=== PATIENT | female | born 1935 | race Caucasian/White ===

== ENCOUNTER 2020-06-13 14:40 | Outpatient (NON) | payer MEDICARE, SELFPAY ==
[2020-06-13 15:22] LABS: Basophils Absolute Auto 0.04 K/mm3 (0.00-0.10); Basophils Percent Auto 0.4 % (0.0-1.0); Eosinophils Absolute Auto 0.16 K/mm3 (0.02-0.50); Eosinophils Percent Auto 1.4 % (1.0-6.0); Hematocrit 42.2 % (35.0-42.0); Hemoglobin 13.5 g/dL (11.7-13.8); Immature Granulocyte Absolute 0.05 K/mm3 (0.00-0.00); Immature Granulocyte Percent A 0.4 % (0.0-0.0); Lymphocytes Absolute Auto 2.43 K/mm3 (1.10-4.50); Lymphocytes Percent Auto 21.4 % (18.0-42.0); Mean Corpuscular Hemoglobin 27.8 pg (27.0-31.0); Mean Platelet Volume 10.7 fl (9.2-11.8); Monocytes Absolute Auto 0.81 K/mm3 (0.10-0.90); Monocytes Percent Auto 7.1 % (2.0-11.0); Neutrophils Absolute Auto 7.9 K/mm3 (1.7-7.2); Neutrophils Percent Auto 69.3 % (50.0-70.0); Platelet Count Result 349 K/mm3 (150-420); Red Blood Count 4.85 M/mm3 (4.20-5.40); Red Cell Distribution Width 13.7 % (11.6-14.4); White Blood Count 11.4 K/mm3 (4.8-10.8)
[2020-06-13 15:28] LABS: Alanine Aminotransferase 15 U/L (14-59); Albumin Level 3.4 g/dL (3.4-5.0); Alkaline Phosphatase 112 U/L (46-116); Anion Gap 11 mmol/L (8-16); Aspartate Amino Transferase 24 U/L (15-37); Bilirubin,Total 0.3 mg/dL (0.00-1.00); Blood Urea Nitrogen 17 mg/dL (7-18); Calcium 8.7 mg/dL (8.5-10.1); Carbon Dioxide 26 mmol/L (21-32); Chloride 105 mmol/L (98-108); Cholesterol 118 mg/dL (0-200); Estimated Glomerular Filt Rate 46; Glucose 94 mg/dL (70-99); HDL Direct 37 mg/dL (40-60); LDL Cholesterol Calculated 38 mg/dL (<130); Osmolality Calculated 295 mOsm/kg (285-295); Potassium 4.7 mmol/L (3.5-5.1); Sodium 142 mmol/L (136-145); Total Protein 7.5 g/dL (6.4-8.2); Triglycerides 217 mg/dL (0-150)
== END 2020-06-13 14:41 ==
LOC: CHSLAB 14:41
PROVIDERS: Visit Provider Nurse Practitioner Family
DX: I51.9 Heart disease, unspecified (principal); I12.9 Hypertensive chronic kidney disease with stage 1 through stage 4 chronic kidney disease, or unspecified chronic kidney disease; N18.31 Chronic kidney disease, stage 3a
CPT/HCPCS: 36415; 80053; 80061; 85025

== ENCOUNTER 2020-08-13 10:50 | Outpatient (CLI) | payer MEDICARE, SELFPAY | END 2020-08-13 10:51 | disposition home or self-care (01) | LOC: CHSAUDIO 10:53 | PROVIDERS: PCP Nurse Practitioner Family; Visit Provider Nurse Practitioner Family | DX: H91.90 Unspecified hearing loss, unspecified ear (principal) | CPT/HCPCS: 92557; 92567 ==

== ENCOUNTER 2020-11-04 16:59 | Outpatient (CLI) | payer MEDICARE, SELFPAY | END 2020-11-04 17:00 | disposition home or self-care (01) | LOC: CHSOUTPT 17:06 | PROVIDERS: PCP Nurse Practitioner Family; Visit Provider Specialist | DX: C44.311 Basal cell carcinoma of skin of nose (principal) | CPT/HCPCS: 88305 ==

== ENCOUNTER 2020-11-19 10:57 | Outpatient (CLI) | payer MEDICARE, SELFPAY ==
[2020-11-19 11:15] LABS: Basophils Absolute Auto 0.04 K/mm3 (0.00-0.10); Basophils Percent Auto 0.5 % (0.0-1.0); Eosinophils Absolute Auto 0.18 K/mm3 (0.02-0.50); Eosinophils Percent Auto 2.1 % (1.0-6.0); Hematocrit 44.6 % (35.0-42.0); Hemoglobin 14.5 g/dL (11.7-13.8); Immature Granulocyte Absolute 0.02 K/mm3 (0.00-0.00); Immature Granulocyte Percent A 0.2 % (0.0-0.0); Lymphocytes Absolute Auto 2.15 K/mm3 (1.10-4.50); Lymphocytes Percent Auto 25.7 % (18.0-42.0); Mean Corpuscular HGB Conc 32.5 g/dL (32.0-36.0); Mean Corpuscular Hemoglobin 28.7 pg (27.0-31.0); Mean Corpuscular Volume 88.1 fL (78.0-102.0); Monocytes Absolute Auto 0.53 K/mm3 (0.10-0.90); Monocytes Percent Auto 6.3 % (2.0-11.0); Neutrophils Absolute Auto 5.5 K/mm3 (1.7-7.2); Neutrophils Percent Auto 65.2 % (50.0-70.0); Platelet Count Result 276 K/mm3 (150-420); Red Blood Count 5.06 M/mm3 (4.20-5.40); Red Cell Distribution Width 13.2 % (11.6-14.4); White Blood Count 8.4 K/mm3 (4.8-10.8)
[2020-11-19 12:05] LABS: Alanine Aminotransferase 20 U/L (14-59); Albumin Level 3.7 g/dL (3.4-5.0); Alkaline Phosphatase 82 U/L (46-116); Anion Gap 13 mmol/L (8-16); Aspartate Amino Transferase 12 U/L (15-37); Bilirubin,Total 0.6 mg/dL (0.00-1.00); Blood Urea Nitrogen 20 mg/dL (7-18); Calcium 8.9 mg/dL (8.5-10.1); Carbon Dioxide 26 mmol/L (21-32); Chloride 102 mmol/L (98-108); Cholesterol 115 mg/dL (0-200); Estimated Glomerular Filt Rate 54; Free T4 Free Thyroxine 0.97 ng/dL (0.76-1.46); Glucose 104 mg/dL (70-99); HDL Direct 43 mg/dL (40-60); LDL Cholesterol Calculated 37 mg/dL (<130); Magnesium 2.1 mg/dL (1.8-2.4); Osmolality Calculated 294 mOsm/kg (285-295); Sodium 141 mmol/L (136-145); Thyroid Stimulating Hormone 1.66 uIU/mL (0.36-3.74); Total Protein 7.4 g/dL (6.4-8.2); Triglycerides 173 mg/dL (0-150)
[2020-11-22 12:54] LABS: Vitamin D 25 Hydroxy 38 ng/mL (30-100)
== END 2020-11-19 10:58 | disposition home or self-care (01) ==
LOC: CHSLAB 11:01
PROVIDERS: PCP Nurse Practitioner Family; Visit Provider Nurse Practitioner Family
DX: I10 Essential (primary) hypertension (principal); E03.9 Hypothyroidism, unspecified; Z79.899 Other long term (current) drug therapy
CPT/HCPCS: 36415; 80053; 80061; 82306; 83735; 84439; 84443; 85025

== ENCOUNTER 2020-12-01 16:26 | Outpatient (NON) | payer MEDICARE, SELFPAY ==
[2020-12-01 16:48] LABS: Add Urine Microscopic? YES; Appearance Urine Cloudy (Clear); Bilirubin Urine Negative (Negative); Blood Urine 1+ (Negative); Glucose Urine UA Negative (Negative); Ketones Urine Negative (Negative); Leukocyte Esterase Ur 2+ LEU/UL (Negative); Nitrate Urine Positive (Negative); Protein Urine 1+ (Negative); Specific Grav Ur 1.025 (1.010-1.020); Urobilinogen Urine 0.2 mg/dL (0.2-1.0)
[2020-12-01 16:51] LABS: Color Urine Amber (Yellow)
[2020-12-01 16:52] LABS: Bacteria Urine 2+ /hpf; RBC Urine None seen /hpf (0-2); Renal Epithelial Cells Urine Few /hpf; Squamous Epithelial Cell Urine Few /hpf (Few); WBC Urine >75 /hpf (0-3)
== END 2020-12-01 16:27 | disposition home or self-care (01) ==
LOC: CHSLAB 16:27
PROVIDERS: Visit Provider Family Medicine
DX: N39.0 Urinary tract infection, site not specified (principal)
CPT/HCPCS: 81001; 87077; 87086; 87088; 87186

== ENCOUNTER 2021-05-22 15:16 | Outpatient (CLI) | payer MEDICARE, SELFPAY ==
[2021-05-22 16:58] LABS: SARS-CoV-2 Ag Negative (Negative)
== END 2021-05-22 15:17 | disposition home or self-care (01) ==
PROVIDERS: PCP Family Medicine; Visit Provider Family Medicine
DX: Z20.822 Contact with and (suspected) exposure to COVID-19 (principal)
CPT/HCPCS: 87426; C9803

== ENCOUNTER 2021-09-02 14:27 | Outpatient (CLI) | payer MEDICARE, SELFPAY ==
--- NOTE | ~2021-09-02 | XR_ITS ---
EXAMINATION: XR chest 2V Exam Date/Time: 09/02/2021 14:50 CDT CLINICAL HISTORY: Wheezing, SOB, LT post chest pain Comparison: 04/27/13. RESULT: Lines, tubes, and devices: None. Lungs and pleura: Clear. Cardiomediastinal silhouette: Stable cardiomediastinal silhouette. Other: No acute osseous or upper abdominal finding. IMPRESSION: No acute cardiopulmonary process Reviewed, dictated and finalized at location K.
[2021-09-02 14:54] LABS: Basophils Absolute Auto 0.04 K/mm3 (0.00-0.10); Basophils Percent Auto 0.4 % (0.0-1.0); Eosinophils Absolute Auto 0.19 K/mm3 (0.02-0.50); Eosinophils Percent Auto 2.1 % (1.0-6.0); Hematocrit 43.7 % (35.0-42.0); Hemoglobin 13.7 g/dL (11.7-13.8); Immature Granulocyte Absolute 0.02 K/mm3 (0.00-0.00); Immature Granulocyte Percent A 0.2 % (0.0-0.0); Lymphocytes Absolute Auto 2.81 K/mm3 (1.10-4.50); Lymphocytes Percent Auto 31.6 % (18.0-42.0); Mean Corpuscular HGB Conc 31.4 g/dL (32.0-36.0); Mean Corpuscular Hemoglobin 28.3 pg (27.0-31.0); Mean Corpuscular Volume 90.3 fL (78.0-102.0); Mean Platelet Volume 10.3 fl (9.2-11.8); Monocytes Absolute Auto 0.79 K/mm3 (0.10-0.90); Monocytes Percent Auto 8.9 % (2.0-11.0); Neutrophils Absolute Auto 5.1 K/mm3 (1.7-7.2); Neutrophils Percent Auto 56.8 % (50.0-70.0); Platelet Count Result 252 K/mm3 (150-420); Red Blood Count 4.84 M/mm3 (4.20-5.40); White Blood Count 8.9 K/mm3 (4.8-10.8)
[2021-09-02 15:24] LABS: Alanine Aminotransferase 18 U/L (14-59); Albumin Level 3.4 g/dL (3.4-5.0); Alkaline Phosphatase 103 U/L (46-116); Anion Gap 10 mmol/L (8-16); Aspartate Amino Transferase 14 U/L (15-37); Bilirubin,Total 0.4 mg/dL (0.00-1.00); Blood Urea Nitrogen 20 mg/dL (7-18); Calcium 9.1 mg/dL (8.5-10.1); Carbon Dioxide 24 mmol/L (21-32); Chloride 105 mmol/L (98-108); Estimated Glomerular Filt Rate 58; Glucose 98 mg/dL (70-99); Osmolality Calculated 290 mOsm/kg (285-295); Potassium 4.4 mmol/L (3.5-5.1); Sodium 139 mmol/L (136-145); Thyroid Stimulating Hormone 1.85 uIU/mL (0.36-3.74); Total Protein 7.6 g/dL (6.4-8.2)
== END 2021-09-02 14:28 | disposition home or self-care (01) ==
LOC: CHSLAB 14:30
PROVIDERS: PCP Family Medicine; Visit Provider Nurse Practitioner Family
DX: R06.2 Wheezing (principal); I10 Essential (primary) hypertension; M54.50 Low back pain, unspecified; R35.1 Nocturia
CPT/HCPCS: 36415; 71046; 80053; 84443; 85025; 87086; 87088

== ENCOUNTER 2021-12-09 11:32 | Outpatient (CLI) | payer MEDICARE, SELFPAY ==
[2021-12-09 11:45] LABS: Hematocrit 44.2 % (35.0-42.0); Hemoglobin 14.1 g/dL (11.7-13.8); Mean Corpuscular HGB Conc 31.9 g/dL (32.0-36.0); Mean Corpuscular Hemoglobin 28.5 pg (27.0-31.0); Mean Corpuscular Volume 89.3 fL (78.0-102.0); Mean Platelet Volume 10.2 fl (9.2-11.8); Platelet Count Result 249 K/mm3 (150-420); Red Blood Count 4.95 M/mm3 (4.20-5.40); Red Cell Distribution Width 13.1 % (11.6-14.4); White Blood Count 7.9 K/mm3 (4.8-10.8)
[2021-12-09 12:47] LABS: Alanine Aminotransferase 19 U/L (14-59); Albumin Level 3.7 g/dL (3.4-5.0); Alkaline Phosphatase 81 U/L (46-116); Anion Gap 8 mmol/L (8-16); Aspartate Amino Transferase 17 U/L (15-37); Bilirubin,Total 0.4 mg/dL (0.00-1.00); Blood Urea Nitrogen 19 mg/dL (7-18); Carbon Dioxide 27 mmol/L (21-32); Chloride 105 mmol/L (98-108); Estimated Glomerular Filt Rate 54; Glucose 119 mg/dL (70-99); Osmolality Calculated 293 mOsm/kg (285-295); Potassium 4.6 mmol/L (3.5-5.1); Sodium 140 mmol/L (136-145); Total Protein 7.2 g/dL (6.4-8.2); Vitamin B12 441 pg/mL (193-986)
[2021-12-09 12:53] LABS: Folic Acid > 20.0 ng/mL (8.6->20)
[2021-12-09 12:54] LABS: Thyroid Stimulating Hormone Reflex 2.07 u/IU/mL (0.36-3.74)
== END 2021-12-09 11:33 | disposition home or self-care (01) ==
LOC: CHSLAB 11:34
PROVIDERS: PCP Family Medicine; Visit Provider Family Medicine
DX: G62.9 Polyneuropathy, unspecified (principal); E11.9 Type 2 diabetes mellitus without complications; E53.8 Deficiency of other specified B group vitamins
CPT/HCPCS: 36415; 80053; 82607; 82746; 83036; 84443; 85027

== ENCOUNTER 2022-03-17 14:51 | Outpatient (CLI) | payer MEDICARE, SELFPAY ==
--- NOTE | ~2022-03-17 | XR_ITS ---
XR ankle RT min 3V DATE: 03/17/2022 15:08 INDICATION: Right ankle pain TECHNIQUE: 4 views COMPARISON: None FINDINGS: Very prominent calcifications are noted along the region of the distal Achilles tendon. The re is prominent plantar and posterior calcaneal enthesopathy. Anterior and posterior tibial artery calcifications. No fracture or dislocation of the ankle or disruption of the ankle mortise. No periosteal reaction or bone destruction of the ankle. IMPRESSION: Prominent plantar and posterior calcaneal enthesopathy and very prominent calcifications along the distal Achilles tendon area Anterior and posterior tibial artery calcifications Reviewed, dictated and finalized at location A. MENTATIONIST IMPRESSION: Prominent plantar and posterior calcaneal enthesopathy and very pro minent calcifications along the distal Achilles tendon area Anterior and posterior tibial artery calcifications
== END 2022-03-17 14:52 | disposition home or self-care (01) ==
PROVIDERS: PCP Family Medicine; Visit Provider Family Medicine
DX: M25.571 Pain in right ankle and joints of right foot (principal)
CPT/HCPCS: 73610

== ENCOUNTER 2022-04-07 13:21 | Outpatient (CLI) | payer MEDICARE, SELFPAY ==
--- NOTE | ~2022-04-07 | XR_ITS ---
EXAMINATION: XR chest 2V 04/07/2022 13:46 INDICATION: Cough PROCEDURE: 2 view chest COMPARISON: Comparison to multiple prior studies sequentially, with oldest reviewed study dated 08/15. FINDINGS: The lungs are clear. The cardiomediastinal silhouette is within normal limits. There are no pleural effusions. There is no pneumothorax suspected. There are cholecystectomy clips. IMPRESSION: 1: NO ACUTE CARDIOPULMONARY DISEASE. Reviewed, dictated and finalized at location A. EF CHARGE NURSE
== END 2022-04-07 13:22 | disposition home or self-care (01) ==
LOC: CHSIMG 13:22
PROVIDERS: PCP Family Medicine; Visit Provider Family Medicine
DX: R05.9 Cough, unspecified (principal)
CPT/HCPCS: 71046

== ENCOUNTER 2022-09-28 17:46 | Outpatient (CLI) | payer MEDICARE, SELFPAY ==
[2022-09-28 17:55] LABS: Appearance Urine Clear (Clear); Bilirubin Urine Negative (Negative); Blood Urine Negative (Negative); Color Urine Light Yellow (Yellow); Glucose Urine UA Negative (Negative); Ketones Urine Negative (Negative); Leukocyte Esterase Ur 2+ (Negative); Nitrate Urine Negative (Negative); Protein Urine Negative (Negative); Urobilinogen Urine 0.2 mg/dL (0.2-1.0); pH Urine 5.5 (5.0-8.0)
[2022-09-28 18:01] LABS: Add Urine Microscopic? YES; Bacteria Urine 1+ /hpf; RBC Urine 0-2 /hpf (0-2); Squamous Epithelial Cell Urine Few /hpf (Few)
== END 2022-09-28 17:47 | disposition home or self-care (01) ==
LOC: CHSLAB 17:48
PROVIDERS: Nurse Practitioner Family; PCP Family Medicine; Visit Provider Nurse Practitioner Family
DX: M54.50 Low back pain, unspecified (principal); M54.9 Dorsalgia, unspecified; R82.90 Unspecified abnormal findings in urine
CPT/HCPCS: 81001; 87086

== ENCOUNTER 2022-10-04 14:08 | Outpatient (CLI) | payer MEDICARE, SELFPAY ==
[2022-10-04 14:28] LABS: Appearance Urine Clear (Clear); Bilirubin Urine Negative (Negative); Blood Urine Negative (Negative); Color Urine Light Yellow (Yellow); Glucose Urine UA Negative (Negative); Ketones Urine Negative (Negative); Leukocyte Esterase Ur Trace LEU/UL (Negative); Nitrate Urine Negative (Negative); Protein Urine Negative (Negative); Urobilinogen Urine 0.2 mg/dL (0.2-1.0)
[2022-10-04 14:46] LABS: Add Urine Microscopic? YES; RBC Urine 0-2 /hpf (0-2); Squamous Epithelial Cell Urine Few /hpf (Few); WBC Urine 0-3 /hpf (0-3)
[2022-10-04 14:47] LABS: Bacteria Urine Trace /hpf
== END 2022-10-04 14:09 | disposition home or self-care (01) ==
LOC: CHSLAB 14:09
PROVIDERS: PCP Family Medicine; Visit Provider Nurse Practitioner Family
DX: M54.9 Dorsalgia, unspecified (principal)
CPT/HCPCS: 81001; 87086; 87088

== ENCOUNTER 2023-01-05 11:25 | Outpatient (CLI) | payer MEDICARE, SELFPAY ==
[2023-01-05 11:44] LABS: Basophils Absolute Auto 0.05 K/mm3 (0.00-0.10); Basophils Percent Auto 0.6 % (0.0-1.0); Eosinophils Percent Auto 2.2 % (1.0-6.0); Hematocrit 45.8 % (35.0-42.0); Hemoglobin 14.7 g/dL (11.7-13.8); Immature Granulocyte Absolute 0.03 K/mm3 (0.00-0.00); Immature Granulocyte Percent A 0.3 % (0.0-0.0); Lymphocytes Absolute Auto 2.32 K/mm3 (1.10-4.50); Lymphocytes Percent Auto 25.5 % (18.0-42.0); Mean Corpuscular HGB Conc 32.1 g/dL (32.0-36.0); Mean Corpuscular Hemoglobin 28.5 pg (27.0-31.0); Mean Corpuscular Volume 88.8 fL (78.0-102.0); Mean Platelet Volume 10.4 fl (9.2-11.8); Monocytes Absolute Auto 0.62 K/mm3 (0.10-0.90); Monocytes Percent Auto 6.8 % (2.0-11.0); Neutrophils Absolute Auto 5.9 K/mm3 (1.7-7.2); Neutrophils Percent Auto 64.6 % (50.0-70.0); Platelet Count Result 252 K/mm3 (150-420); Red Blood Count 5.16 M/mm3 (4.20-5.40); Red Cell Distribution Width 13.2 % (11.6-14.4); White Blood Count 9.1 K/mm3 (4.8-10.8)
[2023-01-05 12:23] LABS: Alanine Aminotransferase 13 U/L (14-59); Albumin Level 3.4 g/dL (3.4-5.0); Alkaline Phosphatase 112 U/L (46-116); Anion Gap 7 mmol/L (8-16); Aspartate Amino Transferase 14 U/L (15-37); Bilirubin,Total 0.4 mg/dL (0.00-1.00); Blood Urea Nitrogen 17 mg/dL (7-18); Calcium 9.2 mg/dL (8.5-10.1); Carbon Dioxide 28 mmol/L (21-32); Chloride 107 mmol/L (98-108); Cholesterol 135 mg/dL (0-200); Estimated Glomerular Filt Rate 55; Glucose 123 mg/dL (70-99); HDL Direct 46 mg/dL (40-60); LDL Cholesterol Calculated 42 mg/dL (<130); Osmolality Calculated 296 mOsm/kg (285-295); Potassium 4.7 mmol/L (3.5-5.1); Sodium 142 mmol/L (136-145); Total Protein 7.2 g/dL (6.4-8.2); Triglycerides 233 mg/dL (0-150)
[2023-01-05 12:24] LABS: Thyroid Stimulating Hormone Reflex 2.13 u/IU/mL (0.36-3.74)
== END 2023-01-05 11:26 | disposition home or self-care (01) ==
LOC: CHSLAB 11:26
PROVIDERS: PCP Family Medicine; Visit Provider Family Medicine
DX: E11.9 Type 2 diabetes mellitus without complications (principal); I10 Essential (primary) hypertension
CPT/HCPCS: 36415; 80053; 80061; 84443; 85025

== ENCOUNTER 2023-01-07 13:24 | Outpatient (CLI) | payer MEDICARE, SELFPAY ==
--- NOTE | ~2023-01-07 | US_ITS ---
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 COMPARISON: None. FINDINGS: Right and left brachial artery pressures of 165 mm Hg and 150 mm Hg, respectively, are concordant (no rmal difference <= 30 mmHg). The right ankle-brachial index (LAURA) is >1.3 (normal >= 0.9-1.0). The right great toe-brachial index (TBI) is 0.75 (normal >= 0.65). Arterial Doppler waveforms are triphasic with brisk systolic upstroke s at both right posterior tibial and dorsalis pedis arteries. The left LAURA is >1.3. The left TBI is 0.63. Arterial Doppler waveforms are triphasic with brisk systo lic upstrokes at both left posterior tibial and dorsalis pedis arteries. IMPRESSION: 1. Mild arterial occlusive disease to the right lower limb with normal right LAURA but mildly decreased right TBI. 2. No significant arterial occlusive disease to the left lower limb with normal left LAURA and TBI. Reviewed, dictated and finalized at location A. IMPRESSION: 1. Mild arterial occlusive disease to the right lower limb with normal right AB I but mildly decreased right TBI. 2. No significant arterial occlusive disease to the left lower limb with normal left LAURA and TBI.
== END 2023-01-07 13:25 | disposition home or self-care (01) ==
LOC: CHSIMG 13:25
PROVIDERS: PCP Family Medicine; Visit Provider Family Medicine
DX: I73.9 Peripheral vascular disease, unspecified (principal)
CPT/HCPCS: 93922

== ENCOUNTER 2023-02-14 08:39 | Outpatient (CLI) | payer MEDICARE, SELFPAY ==
--- NOTE | 2023-02-14 08:51 | EST_ITS ---
Patient Info Name: Luci Heart Age: 87 years : 1935 Gender: Female Ht: 60 in Wt: 193 lbs BSA: 1.97 m2 HR: 66 bpm BP: 164 / 77 mmHg Heart Rhythm: Sinus Rhythm Technical Quality: Good Exam Date: 02/14/2023 11:11 AM Exam Location: [facility] Patient Status: Outpatient Admit Date: 02/14/2023 Staff Ordering Physician: Chay Gamboa DO Attending Provider: Chay Gamboa DO Exam Type: CA stress neil w NM Study Info A regadenoson stress test was performed. History/Risk Factors Hypertension: Yes Dyslipidemia: Yes Summary 1. 1. Inconclusive lexiscan stress test for ischemic ST changes by ECG criteria due to baseline LBBB. 2. 2. Baseline hypertension. 3. 3. Nuclear scan to follow and will be reported separately. Please correlate with it. Protocol: LEXISCAN Stress ECG Details Stage: REST Duration (min): 3 min : 7 sec HR (bpm): 66 SBP (mmHg): 164 DBP (mmHg): 77 Stage: REST Duration (min): 5 min : 43 sec HR (bpm): 69 SBP (mmHg): 164 DBP (mmHg): 77 Stage: STAGE 1 Duration (min): 0 min : 14 sec HR (bpm): 66 SBP (mmHg): 164 DBP (mmHg): 77 Stage: RECOVERY Duration (min): 0 min : 45 sec HR (bpm): 73 SBP (mmHg): 164 DBP (mmHg): 77 Stage: RECOVERY Duration (min): 1 min : 45 sec HR (bpm): 76 SBP (mmHg): 164 DBP (mmHg): 77 Stage: RECOVERY Duration (min): 2 min : 45 sec HR (bpm): 72 SBP (mmHg): 136 DBP (mmHg): 72 Stage: RECOVERY Duration (min): 3 min : 45 sec HR (bpm): 79 SBP (mmHg): 136 DBP (mmHg): 72 Stage: RECOVERY Duration (min): 4 min : 45 sec HR (bpm): 70 SBP (mmHg): 158 DBP (mmHg): 96 Stage: RECOVERY Duration (min): 5 min : 45 sec HR (bpm): 71 SBP (mmHg): 158 DBP (mmHg): 96 Stage: RECOVERY Duration (min): 6 min : 22 sec HR (bpm): 71 SBP (mmHg): 148 DBP (mmHg): 86 Rest HR: 69 bpm Peak HR: 79 bpm Rest Sys BP: 164 mmHg Peak Sys BP: 158 mmHg Max Pred HR: 135 bpm % Max Pred HR: 59 % Target HR: 115 bpm Max RPP: 12,482 bpm*mmHg BP Response: Normal blood pressure response Termination Reason: Completed Protocol Cardiac Symptoms: None Total Time: 0 min : 14 sec Rest Alatorre BP: 77 mmHg Peak Alatorre BP: 96 mmHg Total Dose: 0.4 mg Resting ECG Sinus rhythm, LBBB. Stress ECG No abnormal ST/T wave changes. Arrhythmias None. Report Signatures
--- NOTE | 2023-02-14 15:00 | P.NST_ITS ---
Nuclear Stress Test INDICATIONS Indications: Dyspnea PROCEDURE Procedure Performed: Myocardial Perf Spect-Multi Procedure: Patient underwent a lexiscan stress test and immediately was injected with 27.3 mCi of cardiolyte. Multiple tomographic images were obtained. These are of good quality. There is evidence of large size, severe apical perfusion defect with stress imaging. A separate resting images were obtained after patient was injected with 8.7 mCi of cardiolyte. Multiple tomographic images were obtained. These are of good quality. There is evidence of large size, severe apical perfusion defect with r est imaging. CONCLUSION Conclusion: 1. Myocardial perfusion imaging demonstrates fixed large apical perfusion defect suggestive of attenuation artifact. 2. No reversible ischemia. 3. Left ventriculogram demonstrates normal measured ejection fraction of 71% with no wall motion abnormalities. 4. TID score 1.09 is normal.
== END 2023-02-14 08:40 | disposition home or self-care (01) ==
LOC: CHSCARD 08:40
PROVIDERS: PCP Family Medicine; Visit Provider Family Medicine
DX: R06.02 Shortness of breath (principal)
CPT/HCPCS: 78452; 93017; A9502; J2785

== ENCOUNTER 2023-03-10 13:24 | Outpatient (CLI) | payer MEDICARE, SELFPAY ==
--- NOTE | 2023-03-10 13:30 | ECG_ITS ---
Measurements Intervals [place] Rate: 64 P: 66 PA: 159 QRS: -65 QRSD: 161 T: 81 QT: 447 QTc: 463 Interpretive Statements SINUS RHYTHM LEFT AXIS DEVIATION LEFT BUNDLE BRANCH BLOCK BASELINE WANDER- V2 ABNORMAL ECG NO PREVIOUS ECG AVAILABLE FOR COMPARISON Electronically Signed On 03-10-2023 13:59:48 LIFE SKILLS COORDINATOR VOLUNTEER by Nate Rojas D.O.
== END 2023-03-10 13:25 | disposition home or self-care (01) ==
LOC: CHSCARD 13:26
PROVIDERS: PCP Family Medicine; Visit Provider Internal Medicine Cardiovascular Disease
DX: R06.09 Other forms of dyspnea (principal); I44.7 Left bundle-branch block, unspecified; R94.31 Abnormal electrocardiogram [ECG] [EKG]
CPT/HCPCS: 93005

== ENCOUNTER 2023-03-14 09:00 | Outpatient (CLI) | payer MEDICARE, SELFPAY ==
--- NOTE | 2023-03-28 12:42 | WPDPFTINT ---
PFT Procedure Performed PFT Procedure Performed Spirometry with Pre/Post Bronchodilator Plethysmography (Lung Vol) Diffusing Cap (DLCO) Flow Vol Loop PFT Interpretation DOS: 03/14/2023 REQUESTING: Chay Gamboa D.O. REASON FOR TESTING: shortness of breath PULMONARY FUNCTION TESTS Results are reliable and reproducible. Spirometry: pre bronchodilator FEV1 is 1.70 L, 99% predicted, normal. Pre bronchodilator FVC is 2.16 L, 90 8% predicted. Normal. FEV1/FVC is 79%, normal. After bronchodilator administration there was an 8% drop in the FEV1, 7% drop in the FVC. The post bronchodilator FEV1/FVC ratio is 78%. Lung volumes: Total lung capacity is 3.87 L, 88%, normal. Residual volume is 1.71 L, 88%, normal. RV /TLC 44%, normal. Airway resistance 2.48, 139%. Diffusion: DLCO is 14.2, 72% predicted, normal. DLCO/VA is 4.51, 139% predicted, normal. Flow volume loop: Normal. IMPRESSION: This study shows normal spirometry, normal lung volumes and normal diffusion. Lack of bronchodilator should not preclude use of clinically indicated. There are no prior studies for comparison Kaylin Leggett MD
== END 2023-03-14 09:01 | disposition home or self-care (01) ==
LOC: CHSCARD 09:01
PROVIDERS: PCP Family Medicine; Visit Provider Family Medicine
DX: R06.00 Dyspnea, unspecified (principal)
CPT/HCPCS: 94060; 94726; 94729

== ENCOUNTER 2023-03-18 13:45 | Outpatient (CLI) | payer MEDICARE, SELFPAY ==
--- NOTE | ~2023-03-18 | XR_ITS ---
XR chest 2V DATE: 03/18/2023 14:18 INDICATION: Shortness of breath for months. TECHNIQUE: PA and lateral views COMPARISON: 04/07/2022 2 view chest FINDINGS: Borderline heart size. Thoracic and abdominal aortic calcification. No pulmonary infiltrate or consolidation, pleural effusion or pulmonary vascular congestion or pneumo thorax is detected. Osteopenia. Dextroscoliosis and degenerative spurring of the thoracic spine, degenerative change of the included upper lumbar spine. Status post cholecystectomy. IMPRESSION: No active disease Aortic atherosclerosis Osteopenia Scoliosis and degenerative changes of the thoracic and lumbar spine Reviewed, dictated and finalized at location B. D RUNNER
== END 2023-03-18 13:46 | disposition home or self-care (01) ==
LOC: CHSIMG 13:47
PROVIDERS: PCP Family Medicine; Visit Provider Family Medicine
DX: R05.9 Cough, unspecified (principal); R06.09 Other forms of dyspnea; I70.0 Atherosclerosis of aorta; M85.88 Other specified disorders of bone density and structure, other site; M41.84 Other forms of scoliosis, thoracic region
CPT/HCPCS: 71046

== ENCOUNTER 2023-05-25 13:46 | Outpatient (CLI) | payer MEDICARE, SELFPAY ==
--- NOTE | ~2023-05-25 | XR_ITS ---
EXAMINATION: XR knee RT 3V DATE: 05/25/2023 14:10 INDICATION: Anterior right knee pain. TECHNIQUE: 3 views of right knee were obtained. COMPARISON: Right knee radiographs 03/05/2016 FINDINGS: There is varus angulation at the knee. No fracture. There is severe tricompartmental osteoa rthritis. No knee joint effusion. IMPRESSION: 1. Severe right knee osteoarthritis. Reviewed, dictated and finalized at location E. CTOR OF CURRICULUM
== END 2023-05-25 13:47 | disposition home or self-care (01) ==
PROVIDERS: PCP Family Medicine; Visit Provider Family Medicine
DX: M17.11 Unilateral primary osteoarthritis, right knee (principal); M25.561 Pain in right knee
CPT/HCPCS: 73562

== ENCOUNTER 2023-08-05 14:11 | Outpatient (CLI) | payer MEDICARE, SELFPAY ==
--- NOTE | ~2023-08-05 | XR_ITS ---
XR chest 2V DATE: 08/05/2023 14:37 INDICATION: Shortness of breath TECHNIQUE: 2 views COMPARISON: 03/18/2023 2 view chest FINDINGS: Heart size was within upper normal range. There is aortic arch and abdominal aortic calcifi cation. No hilar or mediastinal enlargement. No pulmonary infiltrate or consolidation, pleural effusion or pulmonary vascular congestion or pneumo thorax is detected. There is osteopenia. There is dextro scoliosis and degenerative spurring of the thoracic spine. Old p roximal humeral shaft fracture deformity is suggested. Surgical clips, right upper quadrant, likely due to cholecystectomy. IMPRESSION: No active cardiopulmonary disease Reviewed, dictated and finalized at location B.
== END 2023-08-05 14:12 | disposition home or self-care (01) ==
LOC: CHSIMG 14:14
PROVIDERS: PCP Family Medicine; Visit Provider Nurse Practitioner Family
DX: R06.02 Shortness of breath (principal)
CPT/HCPCS: 71046

== ENCOUNTER 2023-10-07 09:41 | Outpatient (CLI) | payer MEDICARE, SELFPAY ==
[2023-10-07 09:57] LABS: Basophils Absolute Auto 0.05 K/mm3 (0.00-0.10); Basophils Percent Auto 0.5 % (0.0-1.0); Eosinophils Percent Auto 2.9 % (1.0-6.0); Hematocrit 43.4 % (35.0-42.0); Hemoglobin 13.7 g/dL (11.7-13.8); Immature Granulocyte Absolute 0.04 K/mm3 (0.00-0.00); Immature Granulocyte Percent A 0.4 % (0.0-0.0); Lymphocytes Absolute Auto 2.54 K/mm3 (1.10-4.50); Lymphocytes Percent Auto 24.9 % (18.0-42.0); Mean Corpuscular HGB Conc 31.6 g/dL (32-36); Mean Corpuscular Hemoglobin 28.9 pg (27.0-31.0); Mean Corpuscular Volume 91.6 fL (78.0-102.0); Mean Platelet Volume 9.7 fl (9.2-11.8); Monocytes Absolute Auto 0.57 K/mm3 (0.10-0.90); Monocytes Percent Auto 5.6 % (2.0-11.0); Neutrophils Absolute Auto 6.71 K/mm3 (1.70-7.20); Neutrophils Percent Auto 65.7 % (50.0-70.0); Platelet Count Result 251 K/mm3 (150-420); Red Blood Count 4.74 M/mm3 (4.20-5.40); Red Cell Distribution Width 13.1 % (11.6-14.4); White Blood Count 10.2 K/mm3 (4.8-10.8)
[2023-10-07 10:09] LABS: Hemoglobin A1C 5.7 % (<5.7)
[2023-10-07 10:29] LABS: Thyroid Stimulating Hormone Reflex 2.75 u/IU/mL (0.36-3.74)
[2023-10-07 10:44] LABS: Alanine Aminotransferase 13 U/L (14-59); Albumin Level 3.3 g/dL (3.4-5.0); Alkaline Phosphatase 91 U/L (46-116); Anion Gap 13 mmol/L (4-12); Aspartate Amino Transferase 12 U/L (15-37); Bilirubin,Total 0.4 mg/dL (0.00-1.00); Blood Urea Nitrogen 19 mg/dL (7-18); Calcium 8.8 mg/dL (8.5-10.1); Carbon Dioxide 25 mmol/L (21-32); Chloride 104 mmol/L (98-108); Estimated Glomerular Filt Rate 53; Folic Acid 14.8 ng/mL (8.6->20); Glucose 114 mg/dL (70-99); Osmolality Calculated 297 mOsm/kg (285-295); Potassium 4.7 mmol/L (3.5-5.1); Sodium 142 mmol/L (136-145); Vitamin B12 410 pg/mL (193-986)
== END 2023-10-07 09:42 | disposition home or self-care (01) ==
LOC: CHSLAB 09:42
PROVIDERS: PCP Family Medicine; Visit Provider Family Medicine
DX: E53.8 Deficiency of other specified B group vitamins (principal); E03.9 Hypothyroidism, unspecified; G62.9 Polyneuropathy, unspecified; E11.9 Type 2 diabetes mellitus without complications; R05.9 Cough, unspecified
CPT/HCPCS: 36415; 80053; 82607; 82746; 83036; 84443; 85025

== ENCOUNTER 2023-10-11 08:54 | Outpatient (CLI) | payer MEDICARE, SELFPAY ==
--- NOTE | ~2023-10-11 | CT_ITS ---
EXAMINATION: CT sinus wo con DATE: 10/11/2023 09:13 INDICATION: Congestion and cough TECHNIQUE: Computed tomography (CT) of the paranasal sinuses was performed without intravenous contra st. The dose-length product was 256.54 mGy-cm. Automated exposure control and iterative reconstructio n technique were employed. COMPARISON: None FINDINGS: There is extensive mucosal thickening of all paranasal sinuses. Mastoids are pneumatized. R ightward nasal septal deviation. There is mucoperiosteal reaction of the maxillary sinuses. There is occlusion of the ostiomeatal units. IMPRESSION: 1. Pansinusitis, likely chronic. Reviewed, dictated and finalized at location B.
== END 2023-10-11 08:55 | disposition home or self-care (01) ==
LOC: CHSIMG 08:55
PROVIDERS: PCP Family Medicine; Visit Provider Family Medicine
DX: J32.4 Chronic pansinusitis (principal)
CPT/HCPCS: 70486

== ENCOUNTER 2024-01-19 11:39 | Outpatient (CLI) | payer MEDICARE, SELFPAY ==
--- NOTE | 2024-01-19 11:44 | ECHO_ITS ---
Patient Info Name: Luci Heart Age: 88 years : 1935 Gender: Female Ht: 60 in Wt: 200 lbs BSA: 2.01 m2 HR: 75 bpm BP: 175 / 170 mmHg Heart Rhythm: Sinus Rhythm Technical Quality: Good Exam Date: 01/19/2024 11:56 AM Exam Location: [facility] Patient Status: Outpatient Admit Date: 01/19/2024 Staff Ordering Physician: Nate Rojas DO Underwear Trimmer: Noel Aquino RDCS Attending Provider: Nate Rojas DO Referring Physician: Bob CRAIN; Exam Type: CA echo doppler color flow Study Info Indications - OTHER FORMS OF DYSPNEA Complete two-dimensional, color flow and Doppler transthoracic echocardiogram is performed. History/Risk Factors Hypertension: Yes Dyslipidemia: Yes Summary 1. Complete two-dimensional, color flow and Doppler transthoracic echocardiogram is performed. 2. Left ventricular chamber dimension is normal. 3. Left ventricular systolic function is normal, estimated at 60-65%. 4. There is mild concentric increased left ventricular wall thickness. 5. The left ventricular diastolic function is grade I diastolic dysfunction. 6. E/e' 18 is elevated. 7. Left atrial chamber dimension is mildly enlarged. 8. There is mild aortic valve sclerosis. 9. The mitral valve has mildly calcified leaflets and moderately calcified annulus. 10. There is trace tricuspid valve regurgitation. 11. No pulmonary hypertension, estimated pulmonary arterial systolic pressure is 17 mmHg. Left Ventricle E/e' 18 is elevated. Left ventricular chamber dimension is normal. Left ventricular systolic function is normal, estimated at 60-65%. There is mild concentric increased left ventricular wall thickness. The left ventricular diastolic function is grade I diastolic dysfunction. Right Ventricle Right ventricular systolic function is normal and with normal TAPSE 2.8 cm. Right ventricular chamber dimension is normal. Left Atria Left atrial chamber dimension is mildly enlarged. Right Atria Right atrial chamber dimension is normal. Aortic Valve The aortic valve is trileaflet. There is mild aortic valve sclerosis. There is no aortic valve stenosis. There is no aortic valve regurgitation. Pulmonic Valve There is no pulmonic regurgitation. Mitral Valve The mitral valve has mildly calcified leaflets and moderately calcified annulus. There is no mitral valve stenosis. There is no mitral valve regurgitation. Tricuspid Valve There is trace tricuspid valve regurgitation. No pulmonary hypertension, estimated pulmonary arterial systolic pressure is 17 mmHg. Pericardium/Pleural There is no pericardial effusion. Inferior Vena Cava Normal inferior vena cava with >50% collapse upon inspiration consistent with normal right atrial pressure, 5 mmHg. Aorta The aortic root size at the sinus of Valsalva is normal. Left Ventricular Outflow Tract Name Value Normal LVOT 2D LVOT Diameter 1.7 cm LVOT Doppler LVOT Peak Velocity 66 cm/s LVOT Peak Gradient 2 mmHg LVOT Mean Gradient 1 mmHg LVOT VTI 19 cm LVOT VTI/AV VTI Ratio 0.5 LVOT Stroke Volu
== END 2024-01-19 11:40 | disposition home or self-care (01) ==
LOC: CHSIMG 11:42
PROVIDERS: PCP Family Medicine; Visit Provider Internal Medicine Cardiovascular Disease
DX: R06.09 Other forms of dyspnea (principal); I70.0 Atherosclerosis of aorta
CPT/HCPCS: 93306

== ENCOUNTER 2024-04-18 12:14 | Outpatient (CLI) | payer MEDICARE, SELFPAY ==
--- NOTE | ~2024-04-18 | XR_ITS ---
EXAMINATION: XR shoulder LT min 2V, XR humerus LT DATE: 04/18/2024 12:31 INDICATION: 40 years of generalized left arm pain TECHNIQUE: 1. AP internally and externally rotated, AP oblique externally rotated and transscapular Y views of t he left shoulder were obtained. 2. AP and lateral views of the left humerus were obtained. COMPARISON: None FINDINGS: Old healed fracture deformity at the surgical neck of the proximal left humerus which appears to be h ealed with 15 degree posterior angulation.Alignment is otherwise normal. No acute fractures identifie d. Polyarticular osteoarthritis, severe at the glenoid humeral joint, moderate at the acromioclavicul ar joint and mild at the elbow. Soft tissues are unremarkable. Visualized portion of the lungs are cl ear. Atherosclerotic aorta. IMPRESSION: Old healed fracture deformity proximal left humerus with severe likely secondary left glenohumeral os teoarthritis. Reviewed, dictated and finalized at location A. SSEMBLER AND INSPECTOR IMPRESSION: Old healed fracture deformity proximal left humerus with severe likely secondar y left glenohumeral osteoarthritis.
== END 2024-04-18 12:15 | disposition home or self-care (01) ==
LOC: CHSLAB 12:16
PROVIDERS: PCP Nurse Practitioner Family; Visit Provider Nurse Practitioner Family
DX: M21.822 Other specified acquired deformities of left upper arm (principal); G89.29 Other chronic pain
CPT/HCPCS: 73030; 73060

== ENCOUNTER 2024-09-13 10:36 | Outpatient (CLI) | payer MEDICARE, SELFPAY ==
--- OUTSIDE RECORDS SUMMARY | 2024-09-13 10:42 | XMS_ITS | Encounter Summary ---
Author Organization [facility] Address [facility] [place] [address] Care Team Providers Care Cross Cut Saw Operator Name Role Phone Grazyna Turner DO Primary Care Provider [phone] Denis Lawton MD Unavailable [phone] None, Provider Primary Care Provider Unavaila ble Encounter Details Date Type Department Care Team (Late st Contact Info) Description 07/19/2017 Abstract [facility] at [address] [address] Bibi Rodriguez MA Social History Tobacco Use Types Packs/Day Years Used Date Smoking Tobacco: Former Cigarettes Smokeless Tobacco: Never Comments:quit 1957 Alcohol Use Standard Drinks/Week Comments No 0 (1 standard drink = 0.6 oz pur e alcohol) Comments Unknown Sex and Gender Information Value Date Recorded Sex Assigned at Not on file Legal Sex Female 4:37 PM CDT Gender Identity Not on file Sexual Orientation Straight 08/24/2018 1: 32 PM CDT Occupation Industry Job Start Date Job End Date Not on file Not on file Not on file Not on file documented as of this encounter Progress Notes * COMPA Hale-LIEN - 07/21/2017 8:23 AM CDT PG pt send letter continue current meds documented in this encounter Plan of Treatment Not on file documented as of this encounter Procedures Procedure Name Priority Date/Time Associated Diagnosis Comments FOLATE (OUTSIDE LAB) Routine 06/02/2017 CBC (OUTSIDE LAB) Routine 06/02/2017 VITAMIN B-12 Routine 06/02/2017 COMPREHENSIVE METABOLIC PANEL Routine 06/02/2017 LIPID PANEL Routine 06/02/2017 THYROID STIM HORMONE TSH Routine 06/02/2017 documented in this encounter Results * CBC (OUTSIDE LAB) (06/02/2017) WBC 7.68 HGB 14.8 HCT 45.9 PLT 268 06/02/2017 [facility]-OUTSIDE/ABSTRACTED Final Result * (ABNORMAL) COMPREHENSIVE METABOLIC PANEL (06/02/2017) SODIUM S/P/B 145 POTASSIUM S/P/B 5.4 CO2 22 CHLORIDE S/P/B 107 GLUCOSE 97 mg/dL CALCIUM S/P/B 9.9 BUN 18 CREATININE S/P/B 1.12(A) 0.5 - 1.0 EGFR AFR. AMER. 57 <=90 EGFR NON-AFR. AMER. 47 <=90 ALKALINE PHOSPHATASE S/P/B 90 ALT 26 AST 17 BILIRUBIN TOTAL S/P/B 0.5 ALBUMIN S/P/B 4.6 3.5 - 5.0 TOTAL PROTEIN S/P/B 7.6 06/02/2017 [facility] Final Result * FOLATE (OUTSIDE LAB) (06/02/2017) FOLATE 8.44 06/02/2017 [facility]-OUTSIDE/ABSTRACTED Final Result * LIPID PANEL (06/02/2017) CHOLESTEROL 191 HDL 42 TRIGLYCERIDES 247 LDL (CALCULATED) 100 06/02/2017 [facility] Final Result * THYROID STIM HORMONE, TSH (06/02/2017) TSH 3.07 06/02/2017 [facility] Final Result * VITAMIN B-12 (06/02/2017) VITAMIN B12 S/P/B 323 06/02/2017 [facility] Final Result documented in this encounter Visit Diagnoses Not on filedocumented in this encounter Care Teams Cross Cut Saw Operator Relationship Specialty Start Date End Date Grazyna Turner DO [address] [place] [address] PCP - General INTERNAL MEDICINE 01/31/17 03/18/23 None, MD [place] PCP - General UNKNOWN PHYSICIAN SPECIALTY 03/19/23 Denis Lawton MD Three [facility]. [address] [place] [address] Woodruff Beer Runner CARDIOVASCULAR DISEASE 02/09/17 documented as of this encounter
--- OUTSIDE RECORDS SUMMARY | 2024-09-13 10:42 | XMS_ITS | Encounter Summary ---
Author Organization [facility] Address [facility] [place] [address] Care Team Providers Care Mitten Sewer Name Role Phone Grazyna Turner DO Primary Care Provider [phone] Denis Lawton MD Unavailable [phone] None, Provider Primary Care Provider Unavaila ble Encounter Details Date Type Department Care Team (Late st Contact Info) Description 01/01/2020 Abstract [facility] at [address] [address] Bibi Rodriguez MA Social History Tobacco Use Types Packs/Day Years Used Date Smoking Tobacco: Former Cigarettes Smokeless Tobacco: Never Comments:quit 1957 Alcohol Use Standard Drinks/Week Comments No 0 (1 standard drink = 0.6 oz pur e alcohol) Comments No Sex and Gender Information Value Date Recorded Sex Assigned at Not on file Legal Sex Female 4:37 PM CDT Gender Identity Not on file Sexual Orientation Straight 08/24/2018 1: 32 PM CDT Occupation Industry Job Start Date Job End Date Not on file Not on file Not on file Not on file COVID-19 Exposure Response Date Recorded In the last month, have you been in contact with someone who was confirmed or suspected to have Coronavirus / COVID-19? Unable to assess 12/27/2019 12:34 PM CDT documented as of this encounter Functional Status * RETIRED Are you deaf or do you have serious difficulty hearing Answer Date of Assessment Author Status No 08/24/2018 5:26 PM CDT Activ e * RETIRED Are you blind or do you have serious difficulty seeing, even when wearing glasses? Answer Date of Assessment Author Status No 08/24/2018 5:26 PM CDT Activ e * Do you have serious difficulty walking or climbing stairs? Answer Date of Assessment Author Status No 08/24/2018 5:26 PM CDT [place] R N Active * Do you have difficulty dressing or bathing? Answer Date of Assessment Author Status No 08/24/2018 5:26 PM CDT [place] R N Active * Because of a physical, mental, or emotional condition, do you have difficulty doing errands alone such as visiting a doctor's office or shopping? Answer Date of Assessment Author Status No 08/24/2018 5:26 PM CDT [place] R N Active documented as of this encounter Mental Status * Because of a physical, mental, or emotional condition, do you have serious difficulty concentrating, remembering, or making decisions? Answer Entry Date Author Status No 08/24/2018 5:26 PM CDT [place] R N Active documented in this encounter Plan of Treatment Not on file documented as of this encounter Procedures Procedure Name Priority Date/Time Associated Diagnosis Comments ESR (OUTSIDE LAB) Routine 12/25/2019 CBC (OUTSIDE LAB) Routine 12/25/2019 COMPREHENSIVE METABOLIC PANEL Routine 12/25/2019 LIPID PANEL Routine 12/25/2019 THYROID STIM HORMONE TSH Routine 12/25/2019 CK (CPK) Routine 12/25/2019 documented in this encounter Results * CBC (OUTSIDE LAB) (12/25/2019) WBC 9.52 HGB 13.4 HCT 42.5 PLATELET COUNT 314 12/25/2019 [facility]-OUTSIDE/ABSTRACTED Edite d Result - Final * (ABNORMAL) COMPREHENSIVE METABOLIC PANEL (12/25/2019) Pathologist [facility] SODIUM S/P/B 135 POTASSIUM S/P/B 5.1 CO2 21 CHLORIDE S/P/B 105 GLUCOSE 113 mg/dL CALCIUM S/P/B 9.3 BUN 19 CREATININE S/P/B 1.05(A) 0.5 - 1.0 EGFR AFR. AMER. >60 <=90 EGFR NON-AFR. AMER. 50 <=90 ALKALINE PHOSPHATASE S/P/B 123 ALT 13 AST 22 BILIRUBIN TOTAL S/P/B 0.4 ALBUMIN S/P/B 4.1 3.5 - 5.0 TOTAL PROTEIN S/P/B 7.6 12/25/2019 [facility] Final Result * CK (CPK) (12/25/2019) Pathologist [facility] CPK 43 12/25/2019 [facility] Final Result * LIPID PANEL (12/25/2019) Pathologist [facility] CHOLESTEROL 124 HDL 39 TRIGLYCERIDES 240 LDL (CALCULATED) 37 12/25/2019 [facility] Final Result * ESR (OUTSIDE LAB) (12/25/2019) Pathologist [facility] SED RATE 39 0 - 30 12/25/2019 [facility] Abstract LAB-OUTSIDE/ABSTRACTED Final Result * THYROID STIM HORMONE, TSH (12/25/2019) Pathologist [facility] TSH 3.74 0.47 - 4.68 12/25/2019 [facility] LAB[facility]AT[facility] Final Result documented in this encounter Visit Diagnoses Not on filedocumented in this encounter Care Teams Mitten Sewer Relationship Specialty Start Date End Date Grazyna Tunrer DO [facility] [place] [id number] PCP - General INTERNAL MEDICINE 01/31/17 03/18/23 None, Provider, PCP - General UNKNOWN PHYSICIAN SPECIALTY 03/19/23 Denis Lawton MD Three [facility]. [address] [address] [place] Gluing Machine Operator Automatic CARDIOVASCULAR DISEASE 02/09/17 documented as of this encounter
--- OUTSIDE RECORDS SUMMARY | 2024-09-13 10:42 | XMS_ITS | Clinical Summary ---
Author Organization [facility] Address [address] [place] [address] Care Team Providers Care Fitter Hand Name Role Phone Denis Lawton MD Unavailable [phone] None, Provider MD Primary Care Provider Unavaila ble Allergies No known active allergies Medications clorazepate 7.5 MG tablet Take 1 tablet (7.5 mg total) by mouth 3 (three) times daily. 02/17/2017 Active famotidine 40 MG tablet Take 1 tablet (40 mg total) by mouth nightly as needed for Heartburn. 02/17/2017 Active levothyroxine 50 MCG tablet Take 1 tablet (50 mcg total) by mouth daily. 02/17/2017 Active losartan 100 MG tablet Take 0.5 tablets (50 mg total) by mouth daily. 02/17/2017 Active potassium chloride CR (KLOR-CON M10) 10 MEQ tablet Take 1 tablet (10 mEq total) by mouth daily. 02/17/2017 Active Cholecalciferol (VITAMIN D) 1000 UNIT tablet Take 1 tablet (1,000 Units total) by mouth daily. 02/17/2017 Active traMADol 50 MG tablet Take 1 tablet by mouth 3 (three) times daily as needed. 06/02/2017 Active metoprolol tartrate (LOPRESSOR) 50 MG tablet Take 50 mg by mouth daily. Active NIFEdipine XL (NIFEDICAL XL) 60 MG 24 hr tablet Take 60 mg by mouth daily. Active cholestyramine light 4 G packet Take 1 packet (4 g total) by mouth 3 (three) times daily as needed. 09/18/2018 Active solifenacin succinate (VESICARE) 10 MG Tab Take 1 tablet (10 mg total) by mouth daily. 09/18/2018 Active atorvastatin 20 MG tablet Take 1 tablet by mouth daily. 11/23/2019 Active nystatin powder 2 (two) times daily. 11/14/2019 Active aspirin EC 81 MG tablet Take 81 mg by mouth daily. Active Active Problems Problem Noted Date Diagnosed Date Closed 3-part fracture of nugent rgical neck of left humerus with routine healing, subsequent encounter 09/04/2019 Wrist pain, acute, left 09/04/2019 Dyslipidemia 09/20/2018 Non-ST elevation myocardial infarction (NSTEMI) ([facility]) 08/24/2018 Coronary artery disease invo [place]ving [place] coronary artery of [place] heart without angina pectoris 03/29/2017 Arthritis 04/17/2012 Hypertension, essential LBBB (left bundle branch block) Family History Medical History Relation Comments Heart Disease Mother Relation Status Comments Mother Social History Tobacco Use Types Packs/Day Years [...] file Not on file Not on file Last Filed Vital Signs Vital Sign Reading Time Taken Comments Blood Pressure 199/61 03/19/2023 7:41 PM MOHS SURGEON/GENERAL DERMATOLOGIST Pulse 67 03/19/2023 6:16 PM MOHS SURGEON/GENERAL DERMATOLOGIST Temperature 36.4 C (97.6 F) 03/19/2023 7:41 PM MOHS SURGEON/GENERAL DERMATOLOGIST Respiratory Rate 18 03/19/2023 7:41 PM MOHS SURGEON/GENERAL DERMATOLOGIST Oxygen Saturation 95% 03/19/2023 7:41 PM MOHS SURGEON/GENERAL DERMATOLOGIST Inhaled Oxygen Concentration - - Weight 91.6 kg (202 lb) 03/19/2023 6:16 PM MOHS SURGEON/GENERAL DERMATOLOGIST Height 152.4 cm (5') 03/19/2023 6:16 PM MOHS SURGEON/GENERAL DERMATOLOGIST Body Mass Index 39.45 03/19/2023 6:16 PM MOHS SURGEON/GENERAL DERMATOLOGIST Plan of Treatment Health Maintenance Due Date Last Done Comments ASCVD Statin 1935 Annual Medicare Wellness Visit 2002 DTaP, Tdap and Td Vaccines ( 1 - Tdap) 10/06/2006 10/05/2006, 08/30/2006 Zoster Vaccines (2 of 3) 03/27/2007 007, 10/04/2006 RSV Immunization or 60+ Years (1 - 1-dose 75+ series) 2012 ASCVD LDL 12/24/2020 12/25/2019, 08/24/2018, 06/02/2017 COVID-19 Vaccine (1 - 2023-2 5 season) 2024 Pneumococcal Vaccine: 50+ Years Completed 01/01/2015, 04/01/2014, 12/28/2013 Meningococcal B Vaccine Aged Out No l onger eligible based on patient's age to complete this topic Meningococcal Vaccine Aged Out No ashley wild eligible based on patient's age to complete this topic RSV Immunizations Under 20 Months Aged Out No longer eligible b ased on patient's age to complete this topic Procedures Procedure Name Priority Date/Time Associated Diagnosis Comments LIPID PANEL Routine 12/25/2019 from Last 3 Months or Most Recently Relevant to Health Maintenance Results * LIPID PANEL (12/25/2019) CHOLESTEROL 124 HDL 39 TRIGLYCERIDES 240 LDL (CALCULATED) 37 12/25/2019 us Doc [facility] Final Result from Last 3 Months or Most Recently Relevant to Health Maintenance Insurance [facility] [place] [address] Advance Directives Documents on File Type Date Recorded 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 [address] [address] Sean Manager Law CARDIOVASCULAR DISEASE 02/09/17
--- OUTSIDE RECORDS SUMMARY | 2024-09-13 10:42 | XMS_ITS | Encounter Summary ---
Author Organization [facility] Address [facility] [place] [address] Care Team Providers Care Ditch Digger Name Role Phone Grazyna Turner DO Primary Care Provider [phone] Denis Lawton MD Unavailable [phone] None, Provider Primary Care Provider Unavaila ble Encounter Details Date Type Department Care Team (Late st Contact Info) Description 02/08/2017 Abstract [facility] AT [address] [address] Poly Rollins, DUTY MANAGER Social History Tobacco Use Types Packs/Day Years Used Date Smoking Tobacco: Never Smokeless Tobacco: Never Comments Unknown Sex and Gender Information Value Date Recorded Sex Assigned at Not on file Legal Sex Female 4:37 PM CDT Gender Identity Not on file Sexual Orientation Straight 08/24/2018 1: 32 PM CDT documented as of this encounter Plan of Treatment Not on file documented as of this encounter Procedures Procedure Name Priority Date/Time Associated Diagnosis Comments COMPREHENSIVE METABOLIC PANEL Routine 01/27/2017 MAGNESIUM Routine 01/27/2017 CBC (OUTSIDE LAB) Routine 01/24/2017 documented in this encounter Results * MAGNESIUM (01/27/2017) MAGNESIUM 1.9 01/27/2017 us Doc [facility] Final Result * (ABNORMAL) COMPREHENSIVE METABOLIC PANEL (01/27/2017) SODIUM S/P/B 141 POTASSIUM S/P/B 4.5 CO2 22.0 CHLORIDE S/P/B 107 GLUCOSE 96 mg/dL CALCIUM S/P/B 9.3 BUN 18 CREATININE S/P/B 1.09(A) 0.5 - 1.0 EGFR AFR. AMER. 59 <=90 EGFR NON-AFR. AMER. 48 <=90 ALKALINE PHOSPHATASE S/P/B 99 ALT 15 AST 13 BILIRUBIN TOTAL S/P/B 0.3 ALBUMIN S/P/B 3.8 3.5 - 5.0 TOTAL PROTEIN S/P/B 6.9 01/27/2017 us Doc [facility] Final Result * CBC (OUTSIDE LAB) (01/24/2017) Pathologist [facility] WBC 9.4 HGB 11.7 HCT 35.7 PLT 472 RBC 4.21 01/24/2017 us Doc [facility] LAB-OUTSIDE/ABSTRACTED Final Result documented in this encounter Visit Diagnoses Not on filedocumented in this encounter Care Teams Ditch Digger Relationship Specialty Start Date End Date Grazyna Turner DO [address] [place] [id number] PCP - General INTERNAL MEDICINE 01/31/17 03/18/23 None, [place], PCP - General UNKNOWN PHYSICIAN SPECIALTY 03/19/23 Denis Lawton MD [facility]. [place] [address] [place] [phone] Sean Fender Repairer CARDIOVASCULAR DISEASE 02/09/17 documented as of this encounter
[2024-09-13 10:53] LABS: Basophils Absolute Auto 0.07 K/mm3 (0.00-0.10); Basophils Percent Auto 0.9 % (0.0-1.0); Eosinophils Absolute Auto 0.28 K/mm3 (0.02-0.50); Eosinophils Percent Auto 3.4 % (1.0-6.0); Hematocrit 43.2 % (35.0-42.0); Hemoglobin 13.4 g/dL (11.7-13.8); Immature Granulocyte Absolute 0.03 K/mm3 (0.00-0.00); Immature Granulocyte Percent A 0.4 % (0.0-0.0); Lymphocytes Absolute Auto 2.64 K/mm3 (1.10-4.50); Lymphocytes Percent Auto 32.2 % (18.0-42.0); Mean Corpuscular Hemoglobin 27.5 pg (27.0-31.0); Mean Corpuscular Volume 88.5 fL (78.0-102.0); Monocytes Absolute Auto 0.46 K/mm3 (0.10-0.90); Monocytes Percent Auto 5.6 % (2.0-11.0); Neutrophils Absolute Auto 4.71 K/mm3 (1.70-7.20); Neutrophils Percent Auto 57.5 % (50.0-70.0); Platelet Count Result 277 K/mm3 (150-420); Red Blood Count 4.88 M/mm3 (4.20-5.40); Red Cell Distribution Width 13.2 % (11.6-14.4); White Blood Count 8.2 K/mm3 (4.8-10.8)
[2024-09-13 11:03] LABS: Add Urine Microscopic? YES; Appearance Urine Clear (Clear); Bilirubin Urine Negative (Negative); Blood Urine Negative (Negative); Color Urine Light Yellow (Yellow); Glucose Urine UA Negative (Negative); Ketones Urine Negative (Negative); Leukocyte Esterase Ur Trace LEU/UL (Negative); Nitrate Urine Negative (Negative); Protein Urine Negative (Negative); Specific Grav Ur 1.015 (1.010-1.020); Urobilinogen Urine 0.2 mg/dL (0.2-1.0)
[2024-09-13 11:13] LABS: Alanine Aminotransferase 12 U/L (6-35); Albumin Level 3.8 g/dL (3.5-5.1); Alkaline Phosphatase 87 U/L (38-126); Anion Gap 7 mmol/L (4-12); Aspartate Amino Transferase 19 U/L (14-36); Bacteria Urine None Seen /hpf; Bilirubin,Total 0.6 mg/dL (0.2-1.3); Blood Urea Nitrogen 18 mg/dL (7-17); Carbon Dioxide 24 mmol/L (22-30); Chloride 108 mmol/L (98-107); Cholesterol 124 mg/dL (0-200); Estimated Glomerular Filt Rate > 60; Glucose 127 mg/dL (65-110); HDL Direct 43 mg/dL; LDL Cholesterol Calculated 38 mg/dL (<130); Magnesium 1.8 mg/dL (1.6-2.3); Osmolality Calculated 291 mOsm/kg (285-295); Potassium 4.5 mmol/L (3.4-5.0); RBC Urine None seen /hpf (0-2); Sodium 139 mmol/L (137-145); Squamous Epithelial Cell Urine Few /hpf (Few); Total Protein 6.8 g/dL (6.3-8.2); Triglycerides 213 mg/dL (<150); WBC Urine 0-3 /hpf (0-3)
[2024-09-13 11:30] LABS: Free T4 Free Thyroxine 1.54 ng/dL (0.78-2.19)
[2024-09-13 17:19] LABS: Hemoglobin A1C 5.8 % (<5.7)
[2024-09-14 10:08] LABS: Vitamin D 25 Hydroxy 48 ng/mL (30-100)
[2024-09-14 10:38] LABS: Total Triiodothyronine (T3) 93 ng/dL (76-181)
== END 2024-09-13 10:37 | disposition home or self-care (01) ==
LOC: CHSLAB 10:37
PROVIDERS: PCP Nurse Practitioner Family; Visit Provider Nurse Practitioner Family
DX: I10 Essential (primary) hypertension (principal); Z13.6 Encounter for screening for cardiovascular disorders; E78.5 Hyperlipidemia, unspecified; N18.31 Chronic kidney disease, stage 3a; E03.9 Hypothyroidism, unspecified; R79.89 Other specified abnormal findings of blood chemistry; Z79.899 Other long term (current) drug therapy; Z87.898 Personal history of other specified conditions; E53.8 Deficiency of other specified B group vitamins; I73.9 Peripheral vascular disease, unspecified; R73.9 Hyperglycemia, unspecified
CPT/HCPCS: 36415; 80053; 80061; 81001; 82306; 82607; 83036; 83735; 84439; 84443; 84480; 85025

== ENCOUNTER 2024-09-20 14:42 | Outpatient (CLI) | payer MEDICARE, SELFPAY ==
--- NOTE | ~2024-09-20 | XR_ITS ---
XR abdomen/kub 1V Ordering provider: Rosina Phillips NP History: . rt upper quadrant pain x 2 weeks . Comparison: None. FINDINGS: BOWEL: Nonobstructive bowel gas pattern. ORGANOMEGALY: None. Status post cholecystectomy. SIGNIFICANT PATHOLOGIC CALCIFICATIONS: None. OTHER: No free air is seen under the diaphragm. Degenerative changes of the spine. Bilateral severe o steoarthritic changes. Pubic symphysitis. IMPRESSION: NO ACUTE ABDOMINAL FINDINGS. Reviewed, dictated and finalized at location A.
--- OUTSIDE RECORDS SUMMARY | 2024-09-20 14:46 | XMS_ITS | Continuity of Care Document ---
Author Organization [email or web address] Address [address] [place] [address] Phone Care Team Providers Care Counseling Services Director Name Role Phone Thai SERVICE DESK ASSOCIATE, Luis Felipe Unavailable Unavailable Allergies, Adverse Reactions, Alerts Substance Reaction Status Criticality No Known Allergies Active No Inform ation Medications Medication Instructions Dosage Effective Dates (start - stop) Status Comments SOLIFENACIN 10 MG TABLET TAKE ONE TABLET BY MOUTH ONCE DAILY - Active OMEPRAZOLE DR 40 MG CAPSULE TAKE ONE CAPSULE BY MOUTH ONCE DAILY 1 HOUR BEFORE DINNER -- REPLACES FAMOTIDINE - Active tramadol 50 mg tablet take 1-2 Tablet by oral route every 6 hours as needed for pain. alternate with hydrocodone - Active DX S42.292D clorazepate dipotassium 7.5 mg tablet take 1 tablet by oral route 3 times a day as needed for anxiety - Active LEVOTHYROXINE 50 MCG TABLET TAKE ONE TABLET BY MOUTH ONCE DAILY - Active rosuvastatin 10 mg tablet take 1 tablet by oral route every day 10 MG - Active replaces atorvastatin potassium chloride ER 10 mEq tablet,extended release take 1 tablet by oral route every day with food 10 MEQ - Active losartan 50 mg tablet take 1 tablet by oral route every day 50 MG - Active metoprolol succinate ER 50 mg tablet,extended release 24 hr TAKE ONE TABLET BY MOUTH ONCE DAILY - Active nifedipine ER 60 mg tablet,extended release TAKE ONE TABLET BY MOUTH ONCE DAILY - Active NYSTATIN 100,000 UNIT/GM POWD APPLY TOPICALLY TO THE ABDOMEN TWO TIMES A DAY - Active Aspir-81 mg tablet,delayed release take 1 tablet by oral route every day for heart health - Active lidocaine 5 % topical patch apply 2 patch by transdermal route every day (May wear up to 12hours.) to the area of shingles pain. - Active for shingles B02.9 Vitamin D3 25 mcg (1,000 unit) tablet take 1 by Oral route once a day for vitamin d supplement - Active Tylenol Extra Strength 500 mg tablet take 2 tablet by oral route every 6 hours as needed 1000 MG - Active Vesicare 10 mg tablet TAKE ONE TABLET BY MOUTH ONCE DAILY - No Longer Active Procedures Procedure Date COVID-19, Amplified Probe Technique Pt inelig neg scrn depres CBC, INC PLATELETS AND DIFFERENTIAL COMPREHEN METABOLIC PANEL CMP 0 LIPID PANEL THYROID STIMULATION HORMONE(TSH) 2019 ROUTINE VENIPUNCTURE OFFICE [id number] BODY MASS INDEX DOCD SYST BP LT 130 MM HG DIAST BP < 80 MM HG URINALYSIS, DIPSTICK (UA) - Office Lab O Pt inelig neg scrn depres CBC, INC PLATELETS AND DIFFERENTIAL COMPREHEN METABOLIC PANEL CMP 0 CREATINE KINASE, TOTAL (CPK,CK) 020 LIPID PANEL RBC SED RATE, AUTOMATED THYROID STIMULATION HORMONE(TSH) 2019 URINALYSIS, DIPSTICK (UA) - Office Lab A ROUTINE VENIPUNCTURE OFFICE [id number]-VAM-AFUABVIG BODY MASS INDEX DOCD SYST BP LT 130 MM HG DIAST BP < 80 MM HG OFFICE [id number] FALL PLAN OF CARE DOC'D URINE INCON PLAN DOC'D PRES/ABSN URINE INCON ASSESS Depression screen annual Clin depression screen doc CBC, INC PLATELETS AND DIFFERENTIAL COMPREHEN METABOLIC PANEL CMP 0 LIPID PANEL PARATHYROID HORMONE (PTH) SED RATE , RBC SEDIMENTATION RATE,(ESR) THYROID STIMULATION HORMONE(TSH) 2019 VITAMIN D, 25-HYDROXY ROUTINE VENIPUNCTURE URINALYSIS, DIPSTICK (UA) - Office Lab J OFFICE [id number] BODY MASS INDEX DOCD SYST BP GE 130 - 139MM HG DIAST BP < 80 MM HG OFFICE [id number]-DSM-[id number] BODY MASS INDEX DOCD SYST BP LT 130 MM HG DIAST BP < 80 MM HG FALL PLAN OF CARE DOC'D URINE INCON PLAN DOC'D PRES/ABSN URINE INCON ASSESS Admin influenza virus vac FLU VACC 4 CHRISTINE 0.5mL DOSAGE OFFICE [id number]-DSB-[id number] BODY MASS INDEX DOCD SYST BP GE 130 - 139MM HG DIAST BP < 80 MM HG OFFICE [id number] BODY MASS INDEX DOCD SYST BP LT 130 MM HG DIAST BP < 80 MM HG Pt inelig neg scrn depres OFFICE [id number]-[id number] BODY MASS INDEX DOCD SYST BP LT 130 MM HG DIAST BP < 80 MM HG OFFICE VRXDC-QNJ-[id number] DSCHRG MED/CURRENT MED MERGE BASIC METABOLIC PANEL(BMP) CBC, INC PLATELETS AND DIFFERENTIAL URINALYSIS, DIPSTICK (UA) - Office Lab A ROUTINE VENIPUNCTURE OFFICE [id number] BODY MASS INDEX DOCD SYST BP LT 130 MM HG DIAST BP 80-89 MM HG URINALYSIS, DIPSTICK (UA) - Office Lab A OFFICE [id number] SYST BP LT 130 MM HG DIAST BP < 80 MM HG OFFICE [id number]-BIA-VURFYPJN BODY MASS INDEX DOCD SYST BP LT 130 MM HG DIAST BP < 80 MM HG COMPREHEN METABOLIC PANEL CMP 9 CREATINE KINASE, TOTAL (CPK,CK) 019 LIPID PANEL VITAMIN D, 25-HYDROXY ROUTINE VENIPUNCTURE URINALYSIS, DIPSTICK (UA) - Office Lab J OFFICE [id number]-[id number]-[id number] BODY MASS INDEX DOCD SYST BP GE 130 - 139MM HG DIAST BP < 80 MM HG Advance Directives Directive Yes / No Effective Date File Name No Information Encounters Encounter Description Practice Location Reason(s) For Visit Diagnoses Date Provider Providers Copied on Encounter [facility], [address], [place], [place], [address] , tel: [phone] [facility] No Information 1 Thai Briscoe. [address] [place] [address], [address], [place]. tel: [phone] [facility], [address], [place], [place], [address] , [place] tel: [phone] [facility] No Information 1 Johnny Geronimo. [address] [place] [address], [id number] , [place]. tel: [phone] [facility], [address], [place], [place], [address] , tel: [phone] [facility] Rapid COVID (chief complaint) Exposure to COVID-19 virus 1 Johnny Geronimo. [address] [place] [address], [id number] , . tel: [phone] Referring Provider: Grazyna Carrasquillo, [address] [place] [address], [address] . tel:[phone] [facility] [place], [address], [place], [place], [address] , tel: [phone] [facility] No Information 0 Johnny Geronimo. [address] [place] [address], [id number] , [place]. tel: [phone] [facility] [place], [address], [place], [place], [address] , tel: [phone] [facility] No Information 0 Johnny Geronimo. [address] [place] [address], [id number] , [place]. tel: [phone] [facility] [place], [address], [place], [place], [address] , tel: [phone] [facility] No Information 0 Johnny Geronimo. [address] [place] [address], [id number] , [place]. tel: [phone] OFFICE FDVTT-XFL-SS TAILED [facility] [place], [address], [place], [place], [address] , tel: [phone] [facility] Chronic Conditions (chief complaint) Hypertensive renal diseaseAthscl heart disease of [place] coronary artery w/o ang pctrsInterstit ial cystitisRepeat ed fallsChronic kidney disease, stage 3bDisorder of the skin and subcutaneous tissue, unspecifiedBod y mass index (BMI) 37.0-37.9, adult 0 Johnny Geronimo. [address] [place] [address], [id number] , [place]. tel: [phone] Referring Provider: Grazyna Carrasquillo, [address] [place] [address], [place], [address] . tel:[phone] [facility] [place], [address], [place], [place], [address] , tel: [phone] [facility] Leukocytes in urineDysuria 0 Johnny Geronimo. [address] [place] [address], [id number] , [place]. tel: [phone] Referring Provider: Grazyna Carrasquillo, [address] [place] [address], [place], [address] . tel:[phone] OFFICE XXSYC-XRS-TH [facility], [address], [place], [place], [address] , tel: [phone] [facility] Chronic Conditions (chief complaint) Other closed displaced fracture of proximal end of left humerus with routine healing, subsequent encounterInter stitial cystitisHypert ensive renal diseaseCKD (chronic kidney disease), stage IIIAthscl heart disease of [place] coronary artery w/o ang pctrsRepeated fallsBody mass index (BMI) 37.0-37.9, adult 0 Johnny Geronimo. [address] [place] [address], [id number] , [place]. tel: [phone] Referring Provider: Grazyna Carrasquillo, [address] [place] [address], [place], [address] . tel:[phone] [facility] [place], [address], [place], [place], [address] , tel: [phone] [facility] Oth disp fx of upper end l humer, subs for fx w routn heal 0 Johnny Geronimo. [address] [place] [address], [place], [place], [address] , [place]. tel: [phone] [facility] [place], [address], [place], [place], [address] , [place] tel: [phone] [facility] Oth disp fx of upper end l humer, subs for fx w routn heal 0 Johnny Geronimo. [address] [place] [address], [id number] , [place]. tel: [phone] [facility] [place], [address], [place], [place], [address] , [place] tel: [phone] [facility] Athscl heart disease of [place] coronary artery w/o ang pctrs 0 Johnny Geronimo. [address] [place] [address], [id number] , [place]. tel: [phone] [facility] [place], [address], [place], [place], [address] , [place] tel: [phone] [facility] No Information 0 Beka Hugo. [address] [place] [address], [place], [place], [id number] , [place]. tel: [phone] OFFICE ZLMVM-YRG-CU [facility], [address], [place], [place], [address] , [place] tel: [phone] [facility] Chronic Conditions (chief complaint) Other closed displaced fracture of proximal end of left humerus with routine healing, subsequent encounterLesio n of skin of noseHypertensi ve renal diseaseCKD (chronic kidney disease), stage IIIInterstitia l cystitisSedati ve hypnotic or anxiolytic dependence 0 Thai Gaylin. [address] [place] [address], [address], [place]. tel: [phone] Referring Provider: Grazyna Carrasquillo, [address] [place] [address], [address] . tel:[phone] OFFICE PBDTZ-EIS-UU [facility], [address], [place], [place], [address] , [place] tel: [phone] [facility] Chronic Conditions (chief complaint) Hypertensive renal diseaseCKD (chronic kidney disease), stage IIIOther intervertebral disc degeneration, lumbar regionOther secondary pulmonary hypertensionIn terstitial cystitisSecond earl hyperparathyro idismLeukocyte s in urineMorbid obesity due to excess caloriesMDD (major depressive disorder), recurrent episode, moderateAortic atherosclerosi sBody mass index (BMI) 36.0-36.9, adult 0 Johnny Geronimo. [address] [place] [address], [id number] , [place]. tel: [phone] Referring Provider: Grazyna Carrasquillo, [address] [place] [address], [address] . tel:[phone] OFFICE QNSPA-PIU-GL [facility], [address], [place], [place], [address] , tel: [phone] [facility] Chronic Conditions (chief complaint) Body mass index (BMI) 36.0-36.9, adultPost herpetic neuralgiaOther intervertebral disc degeneration, lumbar regionHyperten sive renal diseaseCKD (chronic kidney disease), stage III 9 Thai Briscoe. [address] [place] [address], [address], [place]. tel: [phone] Referring Provider: Grazyna Carrasquillo, [address] [place] [address], [address] . tel:[phone] OFFICE EIBEP-XZV-IH [facility], [address], [place], [place], [address] , tel: [phone] [facility] Chronic Conditions (chief complaint) Body mass index (BMI) 35.0-35.9, adultNumbness of right footHerpes zoster without complicationCa ndidiasis of breast 9 Beka Hugo. [address] [place] [address], [id number] , [place]. tel: [phone] Referring Provider: Grazyna Carrasquillo, [address] [place] [address], [place], [address] . tel:[phone] [facility]ICE [facility], [address], [place], [place], [address] , tel: [phone] [facility] Chronic Conditions (chief complaint) Body mass index (BMI) 35.0-35.9, adultHypertens keeley renal diseaseCKD (chronic kidney disease), stage IIIOther intervertebral disc degeneration, lumbar regionPost herpetic neuralgiaOther secondary pulmonary hypertension [facility]. [address] [place] [address], [address], [place]. tel: [phone] Referring Provider: Grazyna Carrasquillo, [address] [place] [address], [place], [address] . tel:[phone] OFFICE [facility]ZV[facility], [address], [place], [place], [address] , [place] tel: [phone] [facility] Chronic Conditions (chief complaint) Body mass index (BMI) 35.0-35.9, adultHerpes zoster without complicationOt her intervertebral disc degeneration, lumbar regionHyperten sive renal diseaseCKD (chronic kidney disease), stage III [facility]. [address] [place] [address], [address], [place]. tel: [phone] Referring Provider: Grazyna Carrasquillo, [address] [place] [address], [place], [address] . tel:[phone] OFFICE [facility]CFHQ[facility], [address], [place], [place], [address] , [place] tel: [phone] [facility] Med reconciliation (chief complaint) Body mass index (BMI) 35.0-35.9, adultOther watermelon inspector (current) drug therapy Johnny Geronimo. [address] [place] [address], [place], [place], [address] , [place]. tel: [phone] Referring Provider: Grazyna Carrasquillo, [address] [place] [address], [address] . tel:[phone] OFFICE ISLBW[facility]YYW[facility], [address], [place], [place], [address] , tel: [phone] [facility] acute pyelonephritis (chief complaint)inter stitial cystitis (chief complaint)stage 3 chronic kidney disease (chief complaint)leuko cytosis (chief complaint)condi tions (chief complaint) Body mass index (BMI) 35.0-35.9, adultPyeloneph ritis, acuteCKD (chronic kidney disease), stage IIIInterstitia l cystitisLeukoc ytosis, unspecified typeLeukocytes in urine 9 Irelandshyam Hugo. [address] [place] [address], [id number] , . tel: [phone] Referring Provider: Grazyna Carrasquillo, [address] [place] [address], [address] . tel:[phone] OFFICE KWXXQ[facility]ZDG[facility]CFair[facility], [address], [place], [place], [address] , tel: [phone] [facility] Chronic Conditions (chief complaint) Interstitial cystitisHypert ensive renal diseaseCKD (chronic kidney disease), stage IIIPyelonephri tis, acute 9 Thai Briscoe. [address] [place] [address], [address], . tel: [phone] Referring Provider: Grazyna Carrasquillo, [address] [place] [address], [address] . tel:[phone] OFFICE MIMTT[facility]WZB[facility], [address], [place], [place], [address] , tel: [phone] [facility] Chronic Conditions (chief complaint) Hypertensive renal diseaseCKD (chronic kidney disease), stage IIIOther intervertebral disc degeneration, lumbar regionHistory of gout [facility]. [address] [place] [address], [address], [place]. tel: [phone] Referring Provider: Grazyna Carrasquillo, [address] [place] [address], [place], [address] . tel:[phone] [facility] [place], [address], [place], [place], [address] , tel: [phone] [facility] CKD (chronic kidney disease), stage III 9 [facility]. [address] [place] [address], [address], [place]. tel: [phone] Referring Provider: Grazyna Carrasquillo, [address] [place] [address], [place], [address] . tel:[phone] [facility] [place], [address], [place], [place], [address] , tel: [phone] [facility] Other intervertebral disc degeneration, lumbar region 9 Johnny Geronimo. [address] [place] [address], [place], [place], [id number] , [place]. tel: [phone] OFFICE SRFWX-WIC-YU [facility], [address], [place], [place], [address] , tel: [phone] [facility] Chronic Conditions (chief complaint) Body mass index (BMI) 37.0-37.9, adultInterstit ial cystitisHypert ensive renal diseaseCKD (chronic kidney disease), stage IIILeukocytes in urineSecondary hyperparathyro idismDegenerat keeley disc disease, lumbar [facility]. [address] [place] [address], [address], [place]. tel: [phone] Referring Provider: Grazyna Carrasquillo, [address] [place] [address], [place], [address] . tel:[phone] [facility] [place], [address], [place], [place], [address] , tel: [phone] [facility] Left low back pain, unspecified chronicity, unspecified whether sciatica present 9 Johnny Geronimo. [address] [place] [address], [id number] , [place]. tel: [phone] [facility] [place], [address], [place], [place], [address] , tel: [phone] [facility] cough (chief complaint) Body mass index (BMI) 36.0-36.9, adultCough Lorie Dixie. [address] [place] [address], [id number] , [place]. tel: [phone] Referring Provider: Grazyna Carrasquillo, [address] [place] [address], [address] . tel:[phone] [facility] [place], [address], [place], [place], [address] , tel: [phone] [facility] Coronary artery disease involving [place] coronary artery of [place] heart without angina pectoris Johnny Geronimo. [address] [place] [address], [id number] , [place]. tel: [phone] [facility] [place], [address], [place], [place], [address] , tel: [phone] [facility] Chronic Conditions (chief complaint) Body mass index (BMI) 37.0-37.9, adultCoronary artery disease involving [place] coronary artery of [place] heart without angina pectorisS/P cardiac cathHypertensi ve renal diseaseCKD (chronic kidney disease), stage IIIHistory of gout 9 Thai Briscoe. [address] [place] [address], [address], [place]. tel: [phone] Referring Provider: Grazyna Carrasquillo, [address] [place] [address], [address] . tel: [facility] [place], [address], [place], [address] , tel: [phone] [facility] MDD (major depressive disorder), recurrent episode, moderateSedati ve, hypnotic or anxiolytic dependence with intoxication, unspecifiedAor tic atherosclerosi sBlock, bundle branch, leftHypertensi ve renal diseaseCKD (chronic kidney disease), stage IIIInterstitia l cystitisBilate ral carpal tunnel syndromeMorbid obesity due to excess caloriesDiarrh ea, unspecified typeBody mass index (BMI) 36.0-36.9, adult Apr- 2 9 Johnny Geronimo. [address] [place] [address], [id number] , . tel: [phone] Referring Provider: Grazyna Carrasquillo, [address] [place] [address], [address] . tel:[phone] [facility] [place], [address], [place], [place], [address] , tel: [phone] [facility] Body mass index (BMI) 36.0-36.9, adultHypertens keeley renal diseaseCKD (chronic kidney disease), stage IIIBilateral carpal tunnel syndromeInters titial cystitisFuncti onal diarrheaMorbid obesity due to excess caloriesFungal infection of the groin 201 8 Beka Hugo. [address] [place] [address], [id number] , [place]. tel: [phone] Referring Provider: Grazyna Carrasquillo, [address] [place] [address], [address] . tel:[phone] [facility] [place], [address], [place], [place], [address] , tel: [phone] [facility] Right wrist pain 2 8 Johnny Geronimo. [address] [place] [address], [id number] , [place]. tel: [phone] [facility] [place], [address], [place], [place], [address] , tel: [phone] [facility] CKD (chronic kidney disease), stage III 8 Johnny Geronimo. [address] [place] [address], [id number] , [place]. tel: [phone] Referring Provider: Grazyna Carrasquillo, [address] [place] [address], [address] . tel:[phone] [facility] [place], [address], [place], [place], [address] , tel: [phone] [facility] Acute gout of multiple sites, unspecified causeHypertens keeley renal diseaseCKD (chronic kidney disease), stage IIIInterstitia l cystitisMorbid obesity due to excess caloriesBilate ral carpal tunnel syndromeBody mass index (BMI) 36.0-36.9, adult 8 Johnny Geronimo. [address] [place] [address], [id number] , [place]. tel: [phone] Referring Provider: Grazyna Carrasquillo, [address] [place] [address], [address] . tel:[phone] [facility] [address], [place], [place], [address] , tel: [phone] [facility] Body mass index (BMI) 34.0-34.9, adultHypertens keeley renal diseaseCKD (chronic kidney disease), stage IIIInterstitia l cystitisLesion of skin of faceBlock, bundle branch, leftBilateral carpal tunnel syndrome 8 Thai Briscoe. [address] [place] [address], [address], [place]. tel: [phone] Referring Provider: Grazyna Carrasquillo, [address] [place] [address], [address] . tel:[phone] [facility] [place], [address], [place], [place], [address] , tel: [phone] [facility] Interstitial cystitisBlock, bundle branch, leftObstructiv e sleep apneaAortic atherosclerosi sBilateral carpal tunnel syndromeEKG, abnormalHistor y of cardiac cathSOB (shortness of breath) Fe-2 0-201 8 Johnny Geronimo. [address] [place] [address], [id number] , [place]. tel: [phone] Referring Provider: Grazyna Carrasquillo, [address] [place] [address], [place], [address] . tel:[phone] [facility] [place], [address], [place], [place], [address] , tel: [phone] [facility] Block, bundle branch, leftInterstiti al cystitisMDD (major depressive disorder), recurrent episode, moderateMemory changesSedativ e, hypnotic or anxiolytic dependence with intoxication, unspecifiedObs tructive sleep apnea Feb-0 1-201 8 Johnny Geronimo. [address] [place] [address], [id number] , [place]. tel: [phone] Referring Provider: Grazyna Carrasquillo, [address] [place] [address], [address] . tel: [facility] [place], [address], [place], [place], [address] , tel: [phone] [facility] HypokalemiaEss ential (primary) hypertension 2-201 7 Thai Briscoe. [address] [place] [address], [address], [place]. tel: [phone] Referring Provider: Grazyna Carrasquillo, [address] [place] [address], [address] . tel:[phone] [facility] [place], [address], [place], [place], [address] , tel: [phone] [facility] Block, bundle branch, left Jan-0 2 7 [facility]. [address] [place] [address], [address], [place]. tel: [phone] [facility] [place], [address], [place], [place], [address] , tel: [phone] [facility] Pyelonephritis due to Escherichia coliInterstiti al cystitisHypoka lemiaLeft bundle branch block Dec-2 9-201 7 [facility]. [address] [place] [address], [address], [place]. tel: [phone] Referring Provider: Grazyna Carrasquillo, [address] [place] [address], [address] . tel:[phone] [facility] [place], [address], [place], [address] , [place] tel: [phone] [facility] [facility] Pyelonephritis Dec-2 6 7 [facility]. [address] [place] [address], [address], [place]. tel: [phone] [facility] [place], [address], [place], [place], [id number] , [place] tel: [phone] [facility] Dysuria Nov-0 3201 7 Johnny Geronimo. [address] [place] [address], [id number] , [place]. tel: [phone] Referring Provider: Grazyna Carrasquillo, [address] [place] [address], [address] . tel:[phone] [facility] [place], [address], [place], [place], [id number] , [place] tel: [phone] [facility] Dysuria Nov-0 2-201 7 Johnny Geronimo. [address] [place] [address], [id number] , [place]. tel: [phone] [facility] [place], [address], [place], [place], [id number] , [place] tel: [phone] [facility] MDD (major depressive disorder), recurrent episode, moderateEssent ial (primary) hypertensionMo rbid obesity due to excess caloriesMemory changes 7 Thai Gaylin. [address] [place] [address], [address], [place]. tel: [phone] Referring Provider: Grazyna Carrasquillo, [address] [place] [address], [place], [address] . tel:[phone] [facility] [place], [address], [place], [place], [id number] , tel: [phone] [facility] Special screening for malignant neoplasms, colon 7 [facility]. [address] [place] [address], [address], . tel: [phone] [facility], [address], [place], [place], [id number] , tel: [phone] [facility] Essential (primary) hypertensionMD D (major depressive disorder), recurrent episode, moderateDizzin ess August- 7 [facility]. [address] [place] [address], [address], [place]. tel: [phone] Referring Provider: Grazyna Carrasquillo, [address] [place] [address], [place], [address] . tel:[phone] [facility] [place], [address], [place], [place], [address] , tel: [phone] [facility] Dysuria 7 [facility]. [address] [place] [address], [address], [place]. tel: [phone] Referring Provider: Grazyna Carrasquillo, [address] [place] [address], [address] . tel:[phone] [facility] [place], [address], [place], [place], [id number] , [place] tel: [phone] [facility] Toe pain, right Jun- 7 Johnny Geronimo. [address] [place] [address], [id number] , [place]. tel: [phone] Referring Provider: Grazyna Carrasquillo, [address] [place] [address], [place], [address] . tel: [facility] [place], [address], [place], [place], [id number] , [place] tel: [phone] [facility] Closed fracture of one rib of left side with routine healing, subsequent encounterInter stitial cystitisMorbid obesity due to excess caloriesMDD (major depressive disorder), recurrent episode, moderate Johnny Geronimo. [address] [place] [address], [id number] , [place]. tel: [phone] Referring Provider: Grazyna Carrasquillo, [address] [place] [address], [place], [address] . tel: [facility] [place], [address], [place], [place], [id number] , [place] tel: [phone] [facility] Essential (primary) hypertensionCl osed fracture of one rib of left side with routine healing, subsequent encounter Thai Luis Felipe. [address] [place] [address], [address], [place]. tel: [phone] Referring Provider: Grazyna Carrasquillo, [address] [place] [address], [place], [address] . tel:[phone] [facility] [place], [address], [place], [place], [address] , [place] tel: [phone] [facility] Encounter for immunizationCh ronic pain of both kneesInterstit ial cystitis 6 Johnny Geronimo. [address] [place] [address], [id number] , [place]. tel: [phone] Referring Provider: Grazyna Carrasquillo, [address] [place] [address], [address] . tel:[phone] [facility], [address], [place], [place], [address] , tel: [phone] [facility] Impacted cerumen, bilateral 6 Johnny Geronimo. [address] [place] [address], [id number] , [place]. tel: [phone] Referring Provider: Grazyna Carrasquillo, [address] [place] [address], [address] . tel:[phone] [facility], [address], [place], [place], [address] , tel: [phone] [facility] Back pain, lumbosacralInt erstitial cystitisIrrita ble bowel syndrome with diarrhea 6 Johnny Geronimo. [address] [place] [address], [id number] , [place]. tel: [phone] Referring Provider: Grazyna Carrasquillo, [address] [place] [address], [address] . tel:[phone] [facility], [address], [place], [place], [address] , tel: [phone] [facility] Memory changesEssenti al (primary) hypertensionCe rvical spine arthritis 6 Thai Briscoe. [address] [place] [address], [address], [place]. tel: [phone] Referring Provider: Grazyna Carrasquillo, [address] [place] [address], [address] . tel:[phone] [facility], [address], [place], [place], [address] , tel: [phone] [facility] UTI (urinary tract infection), uncomplicated Jul- 3 6 Johnny Geronimo. [address] [place] [address], [id number] , [place]. tel: [phone] Referring Provider: Grazyna Carrasquillo, [address] [place] [address], [address] . tel:[phone] [facility], [address], [place], [place], [address] , tel: [phone] [facility] Sedative, hypnotic or anxiolytic dependence with intoxication, unspecifiedVer tigoMemory changesEssenti al (primary) hypertensionCe rvical spine arthritis Jul-1 2-201 6 Thai Gaylin. [address] [place] [address], [place], [address], [place]. tel: [phone] Referring Provider: Grazyna Carrasquillo, [address] [place] [address], [place], [address] . tel:[phone] [facility], [address], [place], [place], [address] , tel: [phone] [facility] Interstitial cystitis (chronic) with hematuria Jul-0 6-201 6 Johnny Geronimo. [address] [place] [address], [id number] , [place]. tel: [phone] [facility], [address], [place], [place], [address] , tel: [phone] [facility] Interstitial cystitis (chronic) with hematuriaMorbi d (severe) obesity due to excess caloriesEssent ial (primary) hypertensionOr thostasisCervi buzz spine arthritis Jun-0 9-201 6 Johnny Geronimo. [address] [place] [address], [id number] , [place]. tel: [phone] Referring Provider: Grazyna Carrasquillo, [address] [place] [address], [address] . tel:[phone] [facility], [address], [place], [place], [address] , tel: [phone] [facility] Carpal tunnel syndrome, unspecified upper limb Dec-0 2-201 5 Johnny Geronimo. [address] [place] [address], [id number] , . tel: [phone] [facility], [address], [place], [place], [address] , tel: [phone] [facility] Interstitial cystitisHypert ensionBilatera l carpal tunnel syndromeOsteoa rthritisPneumo marco antonio Vaccine Sep-0 2 5 Johnny Geronimo. [address] [place] [address], [id number] , . tel: [phone] Referring Provider: Grazyna Carrasquillo, [address] [place] [address], [address] . tel:[phone] [facility], [address], [place], [place], [address] , tel: [phone] [facility] Hypertension 5 Johnny Geronimo. [address] [place] [address], [id number] , . tel: [phone] Referring Provider: Grazyna Carrasquillo, [address] [place] [address], [address] . tel:[phone] [facility], [address], [place], [place], [address] , tel: [phone] [facility] Morbid obesityAnxioly tic dependenceHype rtensionCervic al disc herniationTrem orBilateral carpal tunnel syndromeInters titial cystitis 5 Johnny Geronimo. [address] [place] [address], [id number] , . tel: [phone] Referring Provider: Grazyna Carrasquillo, [address] [place] [address], [address] . tel:[phone] Family History Family Member Type Diagnosis Age At Onset Problem (finding) Family history of congestive heart failure (Cause Of ) 87 Mother Problem (finding) coronary arter iosclerosis (Cause Of ) 87 Mother Problem (finding) alzheimer's disease (Ca use Of ) 87 Mother Problem (finding) hypertension (Cause Of ) 87 Father Problem (finding) malignant neop lasm of pharynx (Cause Of ) 60 Immunizations Vaccine Date Status Comments Fluzone High-Dose, high dose , preservative free administered Note: Dr. Johnny chaidez. ; Source: Other Provider Fluzone Quad, split virus, 0.5mL dosage administered Source: New Immuniza tion Record Fluzone Quad, split virus, 0.5mL dosage administered Source: New Immuniza tion Record Fluzone Quad 3134-0877, spli t virus, 0.5mL dosage administered Source: New Immuniza tion Record influenza, injectable, quadrivalent, (3 years or older) administered Source: New Immuniza tion Record Pneumococcal conjugate PCV 13 administere d Source: New Immunization Record Influenza, injectable, quadrivalent, preservative free, 3 yrs or older administered Note: Invalid docum ented admin date was . ; Source: Other Provider Pneumococcal polysaccharide PPV23 administered Note: Invalid docume nted admin date was . ; Source: Other Provider influenza, injectable, quadrivalent, (3 years or older) administered Source: Other Regist ry Pneumococcal polysaccharide PPV23 administered Source: Other Regist ry Zoster administered Note: Invalid d ocumented admin date was . ; Source: Other Provider Td (adult) preservative free administered Source: Other Provider Zoster administered Source: Other P vaughnvider Td (adult) preservative free administered Note: Invalid documented admin date was . ; Source: Other Provider Payers Payer name Insurance type Covered green party ID Authoriza tion(s) [place] MB [id number] [employer] MB [id number] [employer] MB [id number] [employer] MB [id number] [employer] MB [id number] Social History Type Description Quantity Date Captured Comments Sex Female Smoking Status No Information Gender Identity Female Chief Complaint And Reason For Visit No Information Reason For Referral Reason For Referral No Information Plan Of Treatment Date Type Action Status Goal Dietary management education , guidance, and counseling completed Goal Dietary management education , guidance, and counseling completed Goal Dietary management education , guidance, and counseling completed Goal Dietary management education , guidance, and counseling completed Goal Dietary management education , guidance, and counseling completed Goal Dietary management education , guidance, and counseling completed Goal Dietary management education , guidance, and counseling completed Goal Dietary management education , guidance, and counseling completed Goal Dietary management education , guidance, and counseling completed Goal Dietary management education , guidance, and counseling completed Goal Dietary management education , guidance, and counseling completed Goal Dietary management education , guidance, and counseling completed Referral Referred To: [place], [phone] Ordered: Referrals: Cardiology. Pritesh Lawton MD. Evaluation/diagnostic/treatment - Level 3 Appointment date/timeframe: 10/01/2019 ordered Referral Referred To: Miguel Nash MD [address] [place], [phone] Ordered: Referrals: Orthopedic Surgery. Miguel Nash MD. Evaluation/diagnostic/treatment - Level 3 Appointment date/timeframe: 09/04/2019 ordered Referral Referred To: Home Care [phone] Ordered: Referrals: Home Care. Location: [facility]. Evaluation/diagnostic/treatment - Level 3 ordered Referral Referred To: Hamida Knight MD [address] [facility] [address] [place], [phone] Ordered: Referrals: Dermatology. Hamida Knight MD. Evaluation/diagnostic/treatment - Level 3 ordered Referral Referred To: Heber Harris MD [address] [place], [phone] Ordered: Referrals: Urology. Heber Harris MD. Consult - Level 1 Appointment date/timeframe: 03/15/2019 ordered Referral Referred To: Physical Therapy Ordered: Referrals: [facility]. [facility] Evaluation/diagnostic/treatment - Level 3 Appointment date/timeframe: 01/30/2019 ordered Referral Referred To: DAISHA Terry Ordered: Referrals: Pain Management. DAISHA Terry. Consult - Level 1 Appointment date/timeframe: 12/13/2018 ordered Referral Referred To: [facility] [address], [phone] Ordered: X-RAY EXAM OF LUMBAR SPINE, A/P & LAT Bilateral spine, lumbar Appointment date/timeframe: 11/23/2018 ordered History Of Present Illness Encounter Date Complaint History Of Prese nt Illness Rapid COVID Pt as seen today in the parking lot for a rapid COVID test. test came back positive. informed pt of the test results, and advised pt to check her temp, and oxygen levels daily, to stay home for 14 days and to give us a call if symptoms worsen. pt verbalized understanding. pt has no further questions. Chronic Conditions *See Chronic Conditions [facility] Chronic Conditions *See Chronic Conditions [facility] Chronic Conditions *See Chronic Conditions [facility] Chronic Conditions *See Chronic Conditions [facility] Chronic Conditions *See Chronic Conditions [facility] Chronic Conditions *See Chronic Conditions [facility] Chronic Conditions *See Chronic Conditions [facility] Chronic Conditions *See Chronic Conditions [facility] Med reconciliation Pt. here with her for medication reconciliation d/t questions regarding medication list from ER visit and home medications. Medications reviewed. Per Oanh Ireland NP pt. to follow the office medication list. It is current with pt. appropriate medications. Provided pt. with a copy of medication list. Encouraged pt. to call with any further questions or concerns. Pt. and her voiced understanding. conditions The patient pres ents for your follow-up today regarding pyelonephritis. The patient was initially seen in the office on 12/01 with complaints of fever of 102, chills, nausea, and back pain with pelvic pressure. Her temperature was 99 at the office visit, but patient reported she took Tylenol prior to her appointment. Urinalysis was cloudy with a trace amount of blood and 1+ leukocytes and protein. Vital signs were hemodynamically stable. She was given a prescription for Cipro and urinalysis was set for culture. Urine culture was positive for group B Streptococcus and the patient was informed to stop her Cipro on 12/04 and switch to Augmentin. Patient reported to the emergency room on 12/11 with complaints of generalized weakness. She informed the emergency room her antibiotic was switched from Augmentin to Cipro, so they provided her with a prescription for Keflex which she is currently taking. Leukocytosis was evident on the patient CBC at 15.6. She reports overall feeling much better but still complains of a slight weakness. The patient states she has been staying well hydrated but is drinking flavored water. She is a previous history of interstitial cystitis and over active bladder for which she is currently taking Vesicare. She has been managed by urology in the past and has undergone cystoscopy. She was previously taking Elmiron but stop the medication due to cost. She also has a history of stage III chronic kidney disease. Patient denies the use of NSAIDs. Vital signs are normal today. The patient denies fever, chills, nausea, vomiting, and flank pain. Given her previous history of pyelonephritis, urinary tract infections, interstitial cystitis, and overactive bladder, we will refer her back to urology for further management and recommendations. interstitial cystitis acute pyelonephritis stage 3 chronic kidney disease leukocytosis Chronic Conditions *See Chronic Conditions HPI Chronic Conditions *See Chronic Conditions HPI Chronic Conditions *See Chronic Conditions HPI cough pt presented for c/o cough for 10 dayswent to UC about 5 days ago for c/o cough and hoarse voice, was given Rx for guaifenesinhas been taking medication as directed, and started coughing green sputumalso endorses left lateral rib pain, worse with coughingdenies cp, sob, wheezing, palpitations, n/v/d/f/c Chronic Conditions *See Chronic Conditions HPI Functional Status Date Functional Assessmen t No Information Instructions Date Instruction Additional Infor km we monitor this thro [facility]. Make sure you are drinking plenty of water.avoid NSAIDs like ibuprofen, advil, aleve, motrin. tylenol is ok to take. Related to Chronic kidney disease, stage 3b we will work on an a ppointment with the skin doctor Related to Disorder of the skin and subcutaneous tissue, unspecified fall precautions rev iewed in detailcontinue with the walker for safety Related to Repeated falls continue with the vesicare Relat ed to Interstitial cystitis Status: Able to self -manage condition. Goals: Your goal is to work on healthy eating habits. 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 Goals: Your goal is to work on healthy eating habits. 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 Nash Related to Other closed displaced fracture of proximal end of left humerus with routine healing, subsequent encounter Dietary management e ducation, guidance, and counseling Related to Body mass index (BMI) 37.0-37.9, adult Giving encouragement to exercise Related to Body mass index (BMI) 37.0-37.9, adult Disease process I will try to find t he name of the skiver heel tap [place] be difficult to get into a skiver heel tap at this timetry to avoid picking at the lesion. Related to Lesion of skin of nose I will send a refill of your tramadol and hydrocodone.Okay to take the hydrocodone and when you start to feel the pain returning, take a tramadol. I want you to alternate between hydrocodone and tramadol.Continue in the slingfollow-up with Dr. Nash on TuesdayI will order home health for you.We discussed that I do not want more than one provider giving you narcotics without us knowing.Please let us know if Dr. Nash prescribes you any medication and if you plan on filling it. Related to Other closed displaced fracture of proximal end of left humerus with routine healing, subsequent encounter we will give you ref ills of the clorazepate as needed.you have been on this medication for several years and do not want to stop.we reviewed risks and benefits of this medicationCall with any questions or concernswe will hold off on drawing labs until your next appointmentreturn in three months Continue with social distancing.AVOID CROWDS AVOID TOUCHING YOUR FACE AVOID UNNECESSARY TRAVEL. WASH HANDS OFTEN. 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 Related to Hypertensive renal disease Disease process Status: Able to self -manage condition.refill of medication given Goals: Your goal is to manage stress. Related to MDD (major depressive disorder), recurrent episode, moderate This is hardening of the arteries of your heart found on previous imagingno chest pain. good bp controlreturn to me in 3-4 monthscall me with questions or concernscmp cbc tsh ua to be checked Related to Aortic atherosclerosis your weight is stabl econtinue to work on your food choiceskeep up with the [facility] Related to Morbid obesity due to excess calories sending for culture Related to L eukocytes in urine continue with your b ladder medicationdoes look like you have a UTI so we would want to treat thatI called antibiotics to your pharmacy Related to Interstitial cystitis This is related to y our kidney diseasewe will monitor this. continue on vitamin d supplementation Related to Secondary hyperparathyroidism this is increased pr essure in the lungs related to high blood pressurethis was found on ultrasound of the heartbreathing stableCall with any questions or concerns. 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 BP stable Related to Hyper tensive renal disease you have decided to quit pain managementrefill of tramadol given Related to Other intervertebral disc degeneration, lumbar region we monitor this thro [facility] labsavoid NSAIDs like advil, aleve, motrin, ibuprofen, tylenol is ok to takeCall with any questions or concernsno labs todayreturn in May as scheduled Related to CKD (chronic kidney disease), stage III Urinary Incontinence Disease process Dietary management e ducation, guidance, and counseling Related to Body mass index (BMI) 36.0-36.9, adult Giving encouragement to exercise Related to Body mass index (BMI) 36.0-36.9, adult Fall Risk Prevention you have decided to quit pain managementas aboveif we feel your pain does not improve we could consider another medication to help (duloxetine) Related to Other intervertebral disc degeneration, lumbar region BP stable Related to Hyper tensive renal disease we monitor this thro [facility] labsavoid NSAIDs like advil, aleve, motrin, ibuprofen, tylenol is ok to takeCall with any questions or concernsno labs todayreturn in May as scheduled Related to CKD (chronic kidney disease), stage III I sent the lidocaine patches to your pharmacyplease place this on the affected area for 12 hours and then off for 12 hourscontinue to use this on your footI am also sending a refill of the gabapentintake 300mg twice a day to help with the numbness and tingling from having shinglesAs i mentioned, this may help with the chronic back pain as well. Related to Post herpetic neuralgia Disease process Giving encouragement to exercise Related to Body mass index (BMI) 36.0-36.9, adult Dietary management e ducation, guidance, and counseling Related to Body mass index (BMI) 36.0-36.9, adult Your shingles lesion s are healing nicely.No new lesions were noted on exam today. Related to Herpes zoster without complication The redness undernea th your breasts is consistent with yeast.I am refilling your nystatin power.Be sure to wash the affected areas once a day and make sure you are completely drying these areas prior to applying the powder.We recommend using the nystatin powder twice a day. Related to Candidiasis of breast The numbness and tin gling you're describing is neuropathic in nature.I'm going to increase her gabapentin to 300 mg twice a day to see if this improves your pain.Please inform pain management of this issue when you follow-up with them again.Call the office in 2 weeks with an update of your pain.Follow-up with Dr. Turner in May as scheduled. Related to Numbness of right foot Giving encouragement to exercise Related to Body mass index (BMI) 35.0-35.9, adult Dietary management e ducation, guidance, and counseling Related to Body mass index (BMI) 35.0-35.9, adult Disease process Urinary Incontinence Fall Risk Prevention this is increased pr essure in the lungs related to high blood pressurethis was found on ultrasound of the heartbreathing stableCall with any questions or concerns. No labs today.Flu shot the next 2 to 3 weeks- we will call yoursammyurn in three months Related to Other secondary pulmonary hypertension Continue with the li docaine patch on for 12 hours offer 12 hours. I will try to determine why Anny did not give you the 5% patch.I'm going to send over a new medication called gabapentin for you to take in the morning and then again in the afternoon.I am starting on the lowest dose, 100 mg. Some people need to take more than 100 mg to help with her pain. I am concerned that taking this on top of the tramadol could make you a little bit drowsy so I would like to go slow. I will call you next week to see how you're doing. Related to Post herpetic neuralgia Call APBecky back and re schedule your appointment. You have one injection left.Continue with the tramadol as needed for pain. Related to Other intervertebral disc degeneration, lumbar region we monitor this thro [facility] [place] labsavoid NSAIDs like advil, aleve, motrin, ibuprofen, tylenol is ok to take Related to CKD (chronic kidney disease), stage III BP stable Related to Hyper tensive renal disease Giving encouragement to exercise Related to Body mass index (BMI) 35.0-35.9, adult Dietary management e ducation, guidance, and counseling Related to Body mass index (BMI) 35.0-35.9, adult Disease process As we age our kidney don't make as many cells that filter our blood. We monitor this through labs.Ways to keep kidneys from worsening faster are:avoid NSAIDs like advil, aleve, motrin, ibuprofen, tylenol is ok to take.stay hydrated good blood pressure control Related to CKD (chronic kidney disease), stage III follow with APGrecei gennaro injection earlier this week Related to Other intervertebral disc degeneration, lumbar region bp stable Related to Hyper tensive renal disease I am going to send p ain patches over to your pharmacyyou put it on the places where it hurts on for 12 hours and then take off for 12 hoursdo not put on more than 4 patches at a timeI will also send an oral antiviral medication for you to take three times a day or every 8 hourstake this for 1 week.I will see you as scheduled next week and we can see how you are feeling.Call with any questions or concernsno labs todayno flu shot todayreturn as scheduled next week Related to Herpes zoster without complication Disease process Dietary management e ducation, guidance, and counseling Related to Body mass index (BMI) 35.0-35.9, adult Giving encouragement to exercise Related to Body mass index (BMI) 35.0-35.9, adult Giving encouragement to exercise Related to Body mass index (BMI) 35.0-35.9, adult Dietary management e ducation, guidance, and counseling Related to Body mass index (BMI) 35.0-35.9, adult Your white blood oscar l count was elevated in the emergency room due to the infection.We will repeat labs today.CBC, BMP, and urinalysis. Related to Leukocytosis, unspecified type We will refer you to urology for further recommendations.Be sure to call their office to schedule the appointment. Related to Interstitial cystitis Be sure to stay well hydrated and avoid NSAIDs such as Advil (ibuprofen) and Aleve (naproxen) to prevent further damage to your kidneys.We will check your kidney function today. Related to CKD (chronic kidney disease), stage III Be sure to complete your entire antibiotic course.We will recheck your urine today.Make sure you are drinking LOTS of water to prevent this from reoccurring.Call the office if you develop burning with urination, urinary frequency, fever, chills, nausea, or vomiting.Follow-up again in January for your routine office visit.You have to different prescriptions before metoprolol on your discharge medication list.We only have you taking one on our list at the office.Please check your medication at home this afternoon and call me and let me know what you have. 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 renal disease I am going to send a n antibiotic called lidia to your pharmacyplease take this medication twice a day for 10 days.take ALL of the antibioticif you develop these symptoms you need to call our after hours physicianworsening fever greater than 102.2, nausea, vomiting, signs of dehydration, decreased urine output, confusion, severe weaknesstry to drink plenty of water and rest.Call on Tuesday with an update on how you are feeling.call with any questions or concernsurine to be cultured todayreturn in January Related to Pyelonephritis, acute make sure you are inking plenty of waterthe elmiron is too expensivetreating for kidney infection todaysee below Related to Interstitial cystitis avoid NSAIDstylenol ok to take R elated to CKD (chronic kidney disease), stage III Disease process Disease process I gave you a list of foodsyou do not want medicationcall us if you have an acute gout flare.Call with any questions or concernsno labs todayreturn in 2 months-we can give flu shot then Related to History of gout As we age our kidney don't make as many cells that filter our blood. 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 Related to Other intervertebral disc degeneration, lumbar region Disease process Disease process I will set up the AP G referral for pain managementcontinue with tramadol for painCall with any questions or concernsno labs todayreturn end of October Related to Degenerative disc disease, lumbar This is related to y our kidney diseasewe will monitor this. 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0-37.9, adult continue with the ov er the counter guaifenesin to help get out the mucouswill give prescription for antibiotic Z-packrest and drink plenty of fluids, be sure to take big deep breaths often throughout the day for rib pain: - splint the chest with pillow - Extra Strength Tylenol 500mg tablets. May take 1-2 tablets every 8 hours as needed. Do not take more than 6 pills in 24 hours.Call next week with report on symptoms Related to Cough Disease process Giving encouragement to exercise Related to Body mass index (BMI) 36.0-36.9, adult Dietary management e ducation, guidance, and counseling Related to Body mass index (BMI) 36.0-36.9, adult gout diet.will check uric acid levelonce the pain goes away, let us know and we can start a medication to prevent gout. 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 Goals: Your goal is to manage your medicine.you need to eat healthy since you cannot exercise due to arthritis. Related to Coronary artery disease involving [place] coronary artery of [place] heart without angina pectoris Disease process Giving encouragement to exercise Related to Body mass index (BMI) 37.0-37.9, adult Dietary management e ducation, guidance, and counseling Related to Body mass index (BMI) 37.0-37.9, adult Disease process Assessments Type Assessment Date No Information Patient Care Teams Name Effective Dates (start - stop) Status Members No Information
[2024-09-20 16:35] LABS: Add Urine Microscopic? YES; Appearance Urine Clear (Clear); Bilirubin Urine Negative (Negative); Blood Urine Trace-intact (Negative); Color Urine Light Yellow (Yellow); Glucose Urine UA Negative (Negative); Ketones Urine Negative (Negative); Leukocyte Esterase Ur 2+ LEU/UL (Negative); Nitrate Urine Negative (Negative); Protein Urine Negative (Negative); Urobilinogen Urine 0.2 mg/dL (0.2-1.0)
[2024-09-20 16:43] LABS: Bacteria Urine 1+ /hpf; RBC Urine 0-2 /hpf (0-2); Squamous Epithelial Cell Urine Few /hpf (Few); WBC Urine 16-20 /hpf (0-3)
== END 2024-09-20 14:43 | disposition home or self-care (01) ==
LOC: CHSLAB 14:43
PROVIDERS: PCP Nurse Practitioner Family; Visit Provider Nurse Practitioner Family
DX: R10.9 Unspecified abdominal pain (principal); Z87.898 Personal history of other specified conditions
CPT/HCPCS: 74018; 81001; 87086

== ENCOUNTER 2025-03-21 13:17 | Outpatient (CLI) | payer MEDICARE, SELFPAY ==
--- NOTE | ~2025-03-21 | XR_ITS ---
EXAMINATION: XR hand BI arthritis min 3V, 03/21/2025 13:30 CLERICAL WAREHOUSE WORKER HISTORY: M25.541 - Pain in joints of right hand COMPARISON: No comparisons available. Findings: No acute fracture or malalignment. Moderate to severe degenerative changes of the distal interphalangeal joints of the first metacarpal carpal joint. Soft tissues unremarkable. Impression: No acute fracture or malalignment. Reviewed, dictated and finalized at location P. ICAL WAREHOUSE WORKER Impression: No acute fracture or malalignment.
--- OUTSIDE RECORDS SUMMARY | 2025-03-21 16:10 | XMS_ITS | Encounter Summary ---
Author Organization [facility] Address [facility] [place] [address] Care Team Providers Care Bathhouse Attendant Name Role Phone Grazyna Turner DO Primary Care Provider [phone] Denis Lawton MD Unavailable [phone] None, Provider Primary Care Provider Unavaila ble Encounter Details Date Type Department Care Team (Late st Contact Info) Description 07/19/2017 Abstract [facility] at [address] [address] Bibi Rodriguez MA Social History [...] on filedocumented in this encounter Care Teams Bathhouse Attendant Relationship Specialty Start Date End Date Grazyna Turner DO [address] [place] [address] PCP - General INTERNAL MEDICINE 01/31/17 03/18/23 None, MD [place] PCP - General UNKNOWN PHYSICIAN SPECIALTY 03/19/23 Denis Lawton MD Three [facility]. [address] [place] [address] [place] President Practicing Urologist CARDIOVASCULAR DISEASE 02/09/17 documented as of this encounter
--- OUTSIDE RECORDS SUMMARY | 2025-03-21 16:10 | XMS_ITS | Clinical Summary ---
Author Organization [facility] Address [address] [place] [address] Care Team Providers Care Web Development Instructor Name Role Phone Denis Lawton MD Unavailable [phone] None, Provider MD Primary Care Provider Unavaila [...] Dyslipidemia 09/20/2018 Non-ST elevation myocardial infarction (NSTEMI) 08/24/2018 Coronary artery disease invo lving [place] coronary artery of [place] heart without angina pectoris 03/29/2017 Arthritis 04/17/2012 [...] Comments Blood Pressure 199/61 03/19/2023 7:41 PM SEWER PIPE OFFBEARER Pulse 67 03/19/2023 6:16 PM SEWER PIPE OFFBEARER Temperature 36.4 C (97.6 F) 03/19/2023 7:41 PM SEWER PIPE OFFBEARER Respiratory Rate 18 03/19/2023 7:41 PM SEWER PIPE OFFBEARER Oxygen Saturation 95% 03/19/2023 7:41 PM SEWER PIPE OFFBEARER Inhaled Oxygen Concentration - - Weight 91.6 kg (202 lb) 03/19/2023 6:16 PM SEWER PIPE OFFBEARER Height 152.4 cm (5') 03/19/2023 6:16 PM SEWER PIPE OFFBEARER Body Mass Index 39.45 03/19/2023 6:16 PM SEWER PIPE OFFBEARER Plan of Treatment Health Maintenance Due Date Last Done Comments ASCVD Statin 1935 Annual Medicare Wellness Visit 2002 DTaP, Tdap and Td Vaccines (1 - Tdap) 10/06/2006 10/05/2006, 08/30/2006 Zoster Vaccines (2 of 3) 03/27/2007 01/30/2007, 0608/2006 RSV Immunization or 60+ Years (1 - 1-dose 75+ series) 2012 ASCVD LDL 12/24/2020 12/25/2019, /2 08/2018, 06/02/2017 COVID-19 Vaccine (1 - 2024- season) 2024 Influenza Adult (#1) 2025 03/20/2019, 01/26/2018, 02/10/2017, Additional history exists Pneumococcal Vaccine: 50+ Years Completed 01/01/2015, 04/01/2014, 12/28/2013 Hepatitis A Vaccines Aged Out No long er eligible based on patient's age to complete this topic Meningococcal B Vaccine Aged Out No l onger eligible based on patient's age to complete this topic Meningococcal Vaccine Aged Out No [place] eligible based on patient's age to complete this topic RSV Immunizations Under 20 Months Aged Out No longer eligible based on patient's age to complete [...] Most Recently Relevant to Health Maintenance [place] [address] Advance Directives Documents on File Type Date Recorded Patient Head Of Geography Expl anation Legal Documents 09/21/2019 script corn picker form * Full Code (Latest Code Status on File) Date Activated Date Inactivated Comments 08/24/2018 1:39 PM 08/24/2018 8:20 PM Care Teams Web Development Instructor Relationship Specialty Start Date End Date None, Provider, PCP - General UNKNOWN PHYSICIAN SPECIALTY 03/19/[address] [facility]. [address] [place] [address] [place] Audit Associate CARDIOVASCULAR DISEASE 02/09/17
--- OUTSIDE RECORDS SUMMARY | 2025-03-21 16:10 | XMS_ITS | Encounter Summary ---
Author Organization [facility] Address [facility] [place] [address] Care Team Providers Care Patient Access Manager Name Role Phone Grazyna Turner DO Primary Care Provider [phone] Denis Lawton MD Unavailable [phone] None, Provider Primary Care Provider Unavaila ble Encounter Details Date Type Department Care Team (Late st Contact Info) Description 01/01/2020 Abstract [facility] at [address] [address] Bibi Rodriguez MA Social History [...] * (ABNORMAL) COMPREHENSIVE METABOLIC PANEL (12/25/2019) Pathologist [facility] SODIUM S/P/B 135 POTASSIUM S/P/B 5.1 CO2 [...] Final Result * CK (CPK) (12/25/2019) Pathologist [facility] CPK 43 12/25/2019 us Doc [facility] LABORATORY Final Result * LIPID PANEL (12/25/2019) Pathologist [facility] CHOLESTEROL 124 HDL 39 TRIGLYCERIDES 240 LDL (CALCULATED) 37 12/25/2019 us Doc [facility]OR[facility] Final Result * ESR (OUTSIDE LAB) (12/25/2019) Pathologist [facility] SED RATE 39 0 - 30 12/25/2019 us Doc [facility] Abstract LAB-OUTSIDE/ABSTRACTED Final Result * THYROID STIM HORMONE, TSH (12/25/2019) Pathologist [facility] TSH 3.74 0.47 - 4.68 12/25/2019 us Doc [facility] LABORATORY Final Result documented in this encounter Visit Diagnoses Not on filedocumented in this encounter Care Teams Patient Access Manager Relationship Specialty Start Date End Date Grazyna Turner DO [facility] [place] [phone] PCP - General INTERNAL MEDICINE 01/31/17 03/18/23 None, Provider, PCP - General UNKNOWN PHYSICIAN SPECIALTY 03/19/23 Denis Lawton MD Three [facility]. [address] [address] [place] Optical Engineer CARDIOVASCULAR DISEASE 02/09/17 documented as of this encounter
--- OUTSIDE RECORDS SUMMARY | 2025-03-21 16:11 | XMS_ITS | Encounter Summary ---
Author Organization [facility] Address [facility] [place] [address] Care Team Providers Care Cleaner Greaser Name Role Phone Grazyna Turner DO Primary Care Provider [phone] Denis Lawton MD Unavailable [phone] None, Provider Primary Care Provider Unavaila ble Encounter Details Date Type Department Care Team (Late st Contact Info) Description 02/08/2017 Abstract [facility] AT [address] [address] Poly Rollins, POWDER BLENDER Social History Tobacco Use Types Packs/Day Years [...] Result * CBC (OUTSIDE LAB) (01/24/2017) Pathologist [facility] WBC 9.4 HGB 11.7 HCT 35.7 PLT 472 RBC 4.21 01/24/2017 us Doc [facility] Abstract LAB-OUTSIDE/ABSTRACTED Final Result documented in this encounter Visit Diagnoses Not on filedocumented in this encounter Care Teams Cleaner Greaser Relationship Specialty Start Date End Date Grazyna Turner DO [address] [place] [phone] PCP - General INTERNAL MEDICINE 01/31/17 03/18/23 None, [place], PCP - General UNKNOWN PHYSICIAN SPECIALTY 03/19/23 Denis Lawton MD Three [facility]. [address] [place] [phone] [employer] Display Rotator CARDIOVASCULAR DISEASE 02/09/17 documented as of this encounter
== END 2025-03-21 13:18 | disposition home or self-care (01) ==
LOC: CHSIMG 13:19
PROVIDERS: PCP Family Medicine; Visit Provider Nurse Practitioner Family
DX: M25.542 Pain in joints of left hand (principal); M25.541 Pain in joints of right hand
CPT/HCPCS: 73130